=== PATIENT | female | born 1990 | race African-American/Black ===

== ENCOUNTER 2016-03-26 13:55 | Emergency (ER) | payer OTHER ==
[~2016-03-26] VITALS: Ht 165.1 cm; Wt 127.0 kg
[~2016-03-26 13:55] MED LIST: AMOX500C PO; CEFD300C PO; HYDR-971 PO; SULF1TAB24 PO
[2016-03-26 14:42] VITALS: BP 154/72
[2016-03-26 15:07] LABS: BILIRUBIN,URINE NEGATIVE (NEG); GLUCOSE,URINE NEGATIVE (NEG); NITRITE,URINE NEGATIVE (NEG); PROTEIN,URINE NEGATIVE (NEG-TRACE); UROBILINOGEN,URINE 0.2 mg/dL (0.2 mg/dL)
[2016-03-26 15:15] LABS: OBC FLU VALID
--- NOTE | 2016-03-26 15:16 | PHYS DOC ---
Past Medical History Past Medical History: No Pertinent History, Depression, Other Additional Past Medical Histor: tubal Past Surgical History: Other Additional Past Surgical Histo: tumor removal as a child, TUBAL Alcohol Use: Occasionally Drug Use: None Adult General Chief Complaint Chief Complaint: LOWER BACK PAIN OR INJURY [facility] HPI Patient is a 25 year old female presents emergency department stating that she is having lower back pain that is into her pelvic area times 1 days. She also states that she has been nauseated and vomited. She has generalized body aches and discomfort. She denies any urinary frequency but does state that she noted a little bit of blood in her urine earlier today. Patient denies any fever, chills. She denies taking any medications to help with any of the symptoms. Review of Systems Review of Systems Constitutional: chills Eyes: Denies change in visual acuity, redness, or eye pain [] HENT: Denies nasal congestion or sore throat [] Respiratory: Denies cough or shortness of breath [] Cardiovascular: No additional information not addressed in HPI [] GI: Denies abdominal pain, nausea, vomiting, bloody stools or diarrhea [] : Denies dysuria or hematuria [] Musculoskeletal: Denies back pain or joint pain [] Integument: Denies rash or skin lesions [] Neurologic: Denies headache, focal weakness or sensory changes [] Allergies Allergies Allergies Coded Allergies Type Severity Reaction Last Updated Verified No Known Drug Allergies 06/22/13 No Physical Exam Physical Exam Constitutional: Well developed, well nourished, no acute distress, non-toxic appearance. [] HENT: Normocephalic, atraumatic, bilateral external ears normal, oropharynx moist, no oral exudates, nose normal. [] Eyes: PERRLA, EOMI, conjunctiva normal, no discharge. [] Neck: Normal range of motion, no tenderness, supple, no stridor. [] Cardiovascular:Heart rate regular rhythm, no murmur [] Lungs & Thorax: Bilateral breath sounds clear to auscultation [] Abdomen: Bowel sounds hypoactive, soft, no tenderness, no masses, no pulsatile masses. [] Skin: Warm, dry, no erythema, no rash. [] Back: No tenderness, left CVA tenderness. [] Extremities: No tenderness, no cyanosis, no clubbing, ROM intact, no edema. [] Neurologic: Alert and oriented X 3, normal motor function, normal sensory function, no focal deficits noted. [] Psychologic: Affect normal, judgement normal, mood normal. [] Current Patient Data Vital Signs Vital Signs Date Time Temp Pulse Resp B/P Pulse Ox O2 Delivery O2 Flow Rate FiO2 03/26/16 14:42 102.8 127 20 99 Room Air 102.8 Lab Values Laboratory Tests Test 03/26/16 14:45 Influenza Type A Antigen Positive (NEGATIVE) Influenza Type B Antigen Negative (NEGATIVE) EKG EKG [] Radiology/Procedures Radiology/Procedures [] Course & Med Decision Making Course & Med Decision Making Pertinent Labs and Imaging studies reviewed. (See chart for details) Patient's urine dip was positive for small amount leukocyte esterase as well as moderate amount of blood. test was negative. Patient will be placed on Macrobid one tablet twice day for the next 7 days. Recommended plenty of fluids such as water and cranberry juice. Patient's influenza A was positive. She'll be provided with Tamiflu as well. She was encouraged to drink plenty of fluids Tylenol and ibuprofen for fever chills or generalized body aches and discomfort. Patient was provided with discharge instructions treatment regimens and follow-up recommendations. Signs and symptoms to return back to emergency department as been provided. [] Dragon Disclaimer Dragon Disclaimer This electronic medical record was generated, in whole or in part, using a voice recognition dictation system. Departure Departure Impression: Primary Impression: Influenza A Additional Impression: UTI (urinary tract infection) Disposition: 01 HOME, SELF-CARE Condition: STABLE Referrals: NO PCP (PCP) Patient Instructions: Influenza, Adult, [id number], Urinary Tract Infection, [id number] Additional Instructions: Activity as tolerated. Medications as prescribed. Tylenol for fever chills generalized body aches and discomfort. Drink plenty of fluids. Drink plenty of water and cranberry juice. Avoid cranberry juice cocktail, carbonated beverages, citrus fruits and alcohol sees her considered irritants to the bladder. Follow-up to primary care physician next 5-7 days. Return back to emergency department sign symptoms of become worse. Scripts Oseltamivir Phosphate (Tamiflu)75 Mg Capsule1 Cap PO BID #10 CAP Prov:PRESTON ACOSTA MANAGER [employer]ENC[employer] 03/26/16 Nitrofurantoin Monohyd/M-Cryst (Macrobid 100 Mg Capsule)100 Mg Capsule1 Cap PO BID #14 CAP Prov:PRESTON ACOSTA NP 03/26/16 Problem Qualifiers PRESTON ACOSTA NP Mar 26, 2016 15:16
[2016-03-26] MEDS ORDERED: OSEL75CA PO (15:22)
[2016-03-26] MEDS ORDERED: NITR100C62 PO (15:22)
[2016-03-26] MEDS ORDERED: IBUPROFEN 800 MG TABLET. PO ONE (15:30)
[2016-03-26 15:37] LABS: BACTERIA,URINE MANY /HPF (0-FEW)
[2016-03-26 15:38] LABS: SQUAMOUS EPITHELIAL CELL,UR MANY /LPF; YEAST,URINE PRESENT /HPF
== END 2016-03-26 15:45 | disposition home or self-care (01) ==
LOC: ER 13:55
DX: J09.X2 Influenza due to identified novel influenza A virus with other respiratory manifestations (principal); N39.0 Urinary tract infection, site not specified; F32.9 Major depressive disorder, single episode, unspecified
CPT/HCPCS: 81001; 87086; 87804; 99284

== ENCOUNTER 2016-06-26 16:57 | Emergency (ER) | payer SELFPAY ==
[~2016-06-26] VITALS: Ht 167.6 cm; Wt 127.0 kg
[~2016-06-26 16:57] MED LIST changes: +NITR100C62 PO; +OSEL75CA PO
[2016-06-26 17:00] VITALS: BP 131/85
[2016-06-26] MEDS ORDERED: AMOX1TAB61 PO (17:31)
--- NOTE | 2016-06-26 17:31 | PHYS DOC ---
Past Medical History Past Medical History: Depression, Other Additional Past Medical Histor: tubal Past Surgical History: Other Additional Past Surgical Histo: tumor removal as a child, TUBAL Additional Information: 1 PPD Alcohol Use: Occasionally Drug Use: None Adult General Chief Complaint Chief Complaint: HEADACHE HPI HPI Patient is a 25 year old female presents emergency department stating that she' s had 2-3 day history of right frontal sinus pressure as well as a sore throat. She denies any cough or congestion denies any fever chills or nausea vomiting. She does state that she has having right chest discomfort she states that it mainly occurs when she goes to sit forward or when she goes to lay back. She has not taking anything for the pain and discomfort. She states that it just started upon arriving here at the emergency department. Review of Systems Review of Systems Constitutional: Denies fever or chills [] Eyes: Denies change in visual acuity, redness, or eye pain [] HENT: Denies nasal congestion C/o sore throat [] Respiratory: Denies cough or shortness of breath [] Cardiovascular: No additional information not addressed in HPI [] GI: Denies abdominal pain, nausea, vomiting, bloody stools or diarrhea [] : Denies dysuria or hematuria [] Musculoskeletal: Denies back pain or joint pain [] Integument: Denies rash or skin lesions [] Neurologic: right frontal headache, denies focal weakness or sensory changes [] Allergies Allergies Allergies Coded Allergies Type Severity Reaction Last Updated Verified No Known Drug Allergies 06/22/13 No Physical Exam Physical Exam Constitutional: Well developed, well nourished, no acute distress, non-toxic appearance. [] HENT: Normocephalic, atraumatic, bilateral external ears normal, oropharynx moist, no oral exudates, nose normal. Bilateral tympanic membranes appear to be normal. Patient with tenderness noted above the right frontal sinus area. Patient with erythematous noted to bilateral tonsils with exudate noted. Patient is able to talk in full sentences, she is able to maintain her own saliva. Eyes: PERRLA, EOMI, conjunctiva normal, no discharge. [] Neck: Normal range of motion, no tenderness, supple, no stridor. [] Cardiovascular:Heart rate regular rhythm, no murmur [] Lungs & Thorax: Bilateral breath sounds clear to auscultation. Patient with pinpoint tenderness noted upon palpation of the right upper chest area. Skin: Warm, dry, no erythema, no rash. [] Back: No tenderness Extremities: No tenderness, no cyanosis, no clubbing, ROM intact, no edema. [] Neurologic: Alert and oriented X 3, normal motor function, normal sensory function, no focal deficits noted. [] Psychologic: Affect normal, judgement normal, mood normal. [] Current Patient Data Vital Signs Vital Signs Date Time Temp Pulse Resp B/P Pulse Ox O2 Delivery O2 Flow Rate FiO2 06/26/16 17:00 98.2 92 16 131/85 100 Room Air 98.2 EKG EKG EKG was completed with a heart rate of 85 sinus rhythm noted no ectopy noted no STEMI noted per Dr. Becerra Radiology/Procedures Radiology/Procedures [] Course & Med Decision Making Course & Med Decision Making Pertinent Labs and Imaging studies reviewed. (See chart for details) Rapid strep was negative. Although the patient's tonsils appear to be very large with exudate and she has a frontal sinus pain and discomfort she'll be placed on Augmentin. Recommended Sudafed to help with nasal drainage and discharge as well as the pressure of the right sinus. Also recommended Mucinex DM. Patient will be discharged home in stable condition signs symptoms to return back to emergency department as been provided. Patient agrees with discharge instructions treatment regimens and follow-up recommendations. [] Dragon Disclaimer Dragon Disclaimer This electronic medical record was generated, in whole or in part, using a voice recognition dictation system. Departure Departure Impression: Primary Impression: Pharyngitis Additional Impression: Sinusitis Disposition: 01 HOME, SELF-CARE Condition: STABLE Referrals: NO PCP (PCP) Patient Instructions: Sinusitis, Hkqy-[id number], Viral and Bacterial Pharyngitis , [id number]-[id number] Additional Instructions: Activity as tolerated. Medication as prescribed. Tylenol or ibuprofen for your chest wall pain and discomfort. Sudafed instructed by senior product designer [id number]. Mucinex DM as directed by senior product designer [id number]. Drink plenty of fluids. Follow-up primary care physician next 5-7 days. Return back to emergency department sign symptoms of become worse. Scripts Amoxicillin/Potassium Clav (Augmentin 875-125 Tablet)1 Each Tablet1 Tab PO BID # 20 TAB Prov:PRESTON ACOSTA APRN 06/26/16 Problem Qualifiers PRESTON ACOSTA APRN Jun 26, 2016 17:31
--- NOTE | 2016-06-27 06:21 | EKG ---
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
[2016-06-27 08:13] LABS: NEGATIVE OBC STREP NEG; POSITIVE OBC STREP POS
== END 2016-06-26 17:37 | disposition home or self-care (01) ==
LOC: ER 16:57
DX: J32.9 Chronic sinusitis, unspecified (principal); J02.9 Acute pharyngitis, unspecified; F32.9 Major depressive disorder, single episode, unspecified; F17.200 Nicotine dependence, unspecified, uncomplicated
CPT/HCPCS: 87070; 87880; 93005; 99285-25

== ENCOUNTER 2016-10-27 18:05 | Emergency (ER) | payer OTHER ==
[~2016-10-27] VITALS: Ht 165.1 cm; Wt 124.7 kg
[~2016-10-27 18:05] MED LIST changes: +AMOX1TAB61 PO
[2016-10-27] MEDS ORDERED: IBUPROFEN 800 MG TABLET. PO ONE (18:45)
--- NOTE | 2016-10-27 18:53 | EKG ---
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
--- NOTE | 2016-10-27 19:02 | PHYS DOC ---
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 She denies any radiation of the pain. She does state that she has become increasingly short of air when trying to walk up stairs. She states that this is something new. She does state that she has the implant for control and her left upper arm. Patient also states that she's been having a sore throat. Denies any fever, chills or any nausea or vomiting. She also is complaining of lower back pain and discomfort that radiates down into her right lower leg. She denies any trauma or injury to her back area. She denies any urinary frequency urgency or pain with urination. Review of Systems Review of Systems Constitutional: Denies fever or chills [] Eyes: Denies change in visual acuity, redness, or eye pain [] HENT: Denies nasal congestion c/o sore throat [] Respiratory: Denies cough c/o shortness of breath [] Cardiovascular: No additional information not addressed in HPI [] GI: Denies abdominal pain, nausea, vomiting, bloody stools or diarrhea [] : Denies dysuria or hematuria [] Musculoskeletal: Denies back pain or joint pain [] Integument: Denies rash or skin lesions [] Neurologic: Denies headache, focal weakness or sensory changes [] Endocrine: Denies polyuria or polydipsia [] Current Medications Current Medications Current Medications Medications (Trade) Dose Ordered Sig/[facility] Start Time Stop Time Status Last Admin Dose Admin Ibuprofen (Motrin) 800 mg 1X ONCE 10/27/16 18:45 10/27/16 18:47 DC 10/27/16 19:38 800 MG Allergies Allergies Allergies Coded Allergies Type Severity Reaction Last Updated Verified No Known Drug Allergies 06/22/13 No Physical Exam Physical Exam Constitutional: Well developed, well nourished, no acute distress, non-toxic appearance. [] HENT: Normocephalic, atraumatic, bilateral external ears normal, oropharynx moist, no oral exudates, nose normal. Bilateral tympanic membranes appear to be normal. Throat with redness, no erythematous no exudate noted. Right tonsil appears to almost touch the uvula. Left tonsil appears to be enlarged as well. No uvula deviation noted. No anterior cervical adenopathy noted. Eyes: PERRLA, EOMI, conjunctiva normal, no discharge. [] Neck: Normal range of motion, no tenderness, supple, no stridor. [] Cardiovascular:Heart rate regular rhythm, no murmur [] Lungs & Thorax: Bilateral breath sounds clear to auscultation []] Skin: Warm, dry, no erythema, no rash. [] Back: Left lower back tenderness, no CVA tenderness. [] Extremities: No tenderness, no cyanosis, no clubbing, ROM intact, no edema. Peripheral pulses are 2+ cap refill brisk less than 2 seconds. Patient with good sensation noted to lower extremities. Neurologic: Alert and oriented X 3, normal motor function, normal sensory function, no focal deficits noted. [] Psychologic: Affect normal, judgement normal, mood normal. [] Current Patient Data Vital Signs Vital Signs Date Time Temp Pulse Resp B/P (MAP) Pulse Ox O2 Delivery O2 Flow Rate FiO2 10/27/16 18:20 98.6 97 18 114/74 (87) 96 Room Air 98.6 Lab Values Laboratory Tests Test 10/27/16 18:45 10/27/16 19:25 10/27/16 20:10 D-Dimer ([place]) 0.38 ug/mlFEU (0.00-0.50) White Blood Count 8.5 x10^3/uL (4.0-11.0) Red Blood Count 5.20 x10^6/uL (3.50-5.40) Hemoglobin 13.0 g/dL (12.0-15.5) Hematocrit 39.7 % (36.0-47.0) Mean Corpuscular Volume 76 fL (79-100) L Mean Corpuscular Hemoglobin 25 pg (25-35) Mean Corpuscular Hemoglobin Concent 33 g/dL (31-37) Red Cell Distribution Width 15.8 % (11.5-14.5) H Platelet Count 165 x10^3/uL (140-400) Neutrophils (%) (Auto) 66 % (31-73) Lymphocytes (%) (Auto) 25 % (24-48) Monocytes (%) (Auto) 5 % (0-9) Eosinophils (%) (Auto) 3 % (0-3) Basophils (%) (Auto) 1 % (0-3) Neutrophils # (Auto) 5.6 x10^3uL (1.8-7.7) Lymphocytes # (Auto) 2.1 x10^3/uL (1.0-4.8) Monocytes # (Auto) 0.5 x10^3/uL (0.0-1.1) Eosinophils # (Auto) 0.3 x10^3/uL (0.0-0.7) Basophils # (Auto) 0.0 x10^3/uL (0.0-0.2) Sodium Level 139 mmol/L (136-145) Potassium Level 3.5 mmol/L (3.5-5.1) Chloride Level 103 mmol/L (98-107) Carbon Dioxide Level 28 mmol/L (21-32) Anion Gap 8 (6-14) Blood Urea Nitrogen 8 mg/dL (7-20) Creatinine 0.7 mg/dL (0.6-1.0) Estimated GFR (Cockcroft-Gault) 121.5 BUN/Creatinine Ratio 11 (6-20) Glucose Level 127 mg/dL (70-99) H Calcium Level 8.5 mg/dL (8.5-10.1) Total Bilirubin 0.2 mg/dL (0.2-1.0) Aspartate Amino Transferase (AST) 11 U/L (15-37) L Alanine Aminotransferase (ALT) 18 U/L (14-59) Alkaline Phosphatase 72 U/L (46-116) Total Protein 8.3 g/dL (6.4-8.2) H Albumin 3.7 g/dL (3.4-5.0) Albumin/Globulin Ratio 0.8 (1.0-1.7) L Urine Color Yellow Urine Clarity Clear Urine pH 5.5 Urine Specific [place] 1.025 Urine Protein Negative mg/dL (NEG-TRACE) Urine Glucose (UA) Negative mg/dL (NEG) Urine Ketones (Stick) Negative mg/dL (NEG) Urine Blood Moderate (NEG) Urine Nitrite Negative (NEG) Urine Bilirubin Negative (NEG) Urine Urobilinogen Dipstick 1.0 mg/dL (0.2 mg/dL) Urine Leukocyte Esterase Small (NEG) Urine RBC 3-5 /HPF (0-2) Urine WBC 1-4 /HPF (0-4) Urine Squamous Epithelial Cells Occ /LPF Urine Bacteria Moderate /HPF (0-FEW) Urine Mucus Mod /LPF Laboratory Tests 10/27/16 19:25 Laboratory Tests 10/27/16 19:25 EKG EKG Patient with an EKG completed at 1813 with a heart rate of 93 sinus rhythm noted no ectopy no STEMI per Dr. Pack[] Radiology/Procedures Radiology/Procedures [] Course & Med Decision Making Course & Med Decision Making Pertinent Labs and Imaging studies reviewed. (See chart for details) Chest x-ray was negative per Dr. Burden. Rapid strep was negative. CBC chemistries and a d-dimer were within normal limits. Urine was positive for urinary tract infection. Patient will be discharged home with Keflex, and Flexeril. Patient will be provided Keflex for urinary tract infection as well as for throat issues. However she has has pharyngitis. Patient will be provided with Flexeril for lower back pain and discomfort. Patient was instructed Flexeril will cause drowsiness do not take any be alert and oriented. That radiates down into her right leg. Patient has been provided with all of her lab results. She'll be discharged home in stable condition with recommendations for plenty of fluids such as water and cranberry juice. Recommended to avoid coverages cocktail, carbonate beverages, citrus fruits, alcohol, and caffeine as these are all considered irritants to the bladder. Signs and symptoms to return back to emergency department been provided. [] Dragon Disclaimer Dragon Disclaimer This electronic medical record was generated, in whole or in part, using a voice recognition dictation system. Departure Departure Impression: Primary Impression: UTI (urinary tract infection) Additional Impressions: Pharyngitis Back pain Disposition: 01 HOME, SELF-CARE Condition: STABLE Referrals: NO PCP (PCP) Patient Instructions: Back Pain, Adult, [id number], Urinary Tract Infection, Pzik-gs-Vugb, Viral and Bacterial Pharyngitis, [id number] Additional Instructions: Your x-ray of your chest was negative, you're rapid strep was negative, you're blood work was normal. You do have a urinary tract infection. Drink plenty of fluids such as water and cranberry juice. Avoid cranberry juice cocktail, carbonate beverages, caffeine, alcohol, citrus fruits disease are considered irritants to the bladder. Medications as prescribed. Ibuprofen 800 mg every 8 hours with food stop taking few develop an upset stomach. Flexeril will help with your back pain and discomfort however this medication will cause drowsiness do not take any be alert and oriented. Follow-up with your primary care physician in next 7-10 days. Return back to emergency prior signs symptoms of become worse. Scripts Cyclobenzaprine Hcl (CYCLOBENZAPRINE HCL) 10 Mg Tablet 1 TAB PO TID Y for MUSCLE SPASMS, #30 TAB Prov: PRESTON ACOSTA APRN 10/27/16 Cephalexin (CEPHALEXIN) 500 Mg Tablet 1 TAB PO BID, #20 TAB Prov: PRESTON ACOSTA APRN 10/27/16 Problem Qualifiers Additional Impressions: Back pain Back pain location: low back pain Chronicity: acute Back pain laterality: unspecified Sciatica presence: without sciatica Qualified Codes: M54.5 - Low back pain PRESTON ACOSTA APRN Oct 27, 2016 19:02
[2016-10-27 19:31] LABS: BASO % 1 % (0-3); EOS % 3 % (0-3); HEMATOCRIT 39.7 % (36.0-47.0); LYMPH # 2.1 x10^3/uL (1.0-4.8); LYMPH % 25 % (24-48); MEAN CORPUSCULAR HEMOGLOBIN 25 pg (25-35); MEAN CORPUSCULAR HGB CONC 33 g/dL (31-37); MEAN CORPUSCULAR VOLUME 76 fL (79-100); MONO % 5 % (0-9); NEUT % 66 % (31-73); PLATELET COUNT 165 x10^3/uL (140-400); RED CELL DISTRIBUTION WIDTH 15.8 % (11.5-14.5); WHITE BLOOD COUNT 8.5 x10^3/uL (4.0-11.0)
[2016-10-27 19:52] LABS: CALCIUM 8.5 mg/dL (8.5-10.1); CREATININE 0.7 mg/dL (0.6-1.0); GFR 121.5; POTASSIUM 3.5 mmol/L (3.5-5.1)
[2016-10-27 19:56] LABS: ALBUMIN 3.7 g/dL (3.4-5.0); ALBUMIN/GLOBULIN RATIO 0.8 (1.0-1.7); TOTAL BILIRUBIN 0.2 mg/dL (0.2-1.0); TOTAL PROTEIN 8.3 g/dL (6.4-8.2)
[2016-10-27 20:20] LABS: BILIRUBIN,URINE NEGATIVE (NEG); GLUCOSE,URINE NEGATIVE (NEG); NITRITE,URINE NEGATIVE (NEG); PH,URINE 5.5; PROTEIN,URINE NEGATIVE (NEG-TRACE)
[2016-10-27 20:34] LABS: BACTERIA,URINE MODERATE /HPF (0-FEW); SQUAMOUS EPITHELIAL CELL,UR OCC /LPF
[2016-10-27] MEDS ORDERED: CEPH500T PO (20:45)
[2016-10-27] MEDS ORDERED: CYCL10TA2 PO (20:45)
[2016-10-27 20:56] VITALS: BP 130/65
--- NOTE | 2016-10-28 08:17 | RAD ---
Exam performed: 2 views of the chest. Indication: left upper chest pain Date of Service:10/27/2016 8:45 PM . Comparison : None available. Findings: PA and lateral radiographs of the chest reveal a normal cardiomediastinal contour. The lungs are clear. No pleural fluid is seen. The visualized osseous structures are unremarkable. Impression: Radiographically normal chest.
[2016-10-28 10:15] LABS: NEGATIVE OBC STREP NEG; POSITIVE OBC STREP POS
== END 2016-10-27 20:35 | disposition home or self-care (01) ==
LOC: ER 18:05
DX: N39.0 Urinary tract infection, site not specified (principal); J02.9 Acute pharyngitis, unspecified; R07.89 Other chest pain
CPT/HCPCS: 36415; 71020; 80053; 81001; 85025; 85379; 87070; 87086; 87880; 93005; 99285-25

== ENCOUNTER 2017-01-13 17:42 | Emergency (ER) | payer OTHER ==
[~2017-01-13] VITALS: Ht 165.1 cm; Wt 133.8 kg
[~2017-01-13 17:42] MED LIST changes: +CEPH500T PO; +CYCL10TA2 PO
[2017-01-13] MEDS ORDERED: IV NORMAL SALINE 1000ML BAG 1,000 ML IV ONE (19:00)
[2017-01-13] MEDS ORDERED: ONDANSETRON PF 4 MG/2 ML VIAL. IV ONE (19:00)
--- NOTE | 2017-01-13 19:07 | PHYS DOC ---
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 Patient states that for the past 4 days she's had increasing abdominal pain with spotting. Patient states she has implant in her left upper arm since 2013 therefore has irregular menses. Patient states she has some burning with urination. Patient denies any fevers. Patient denies any nausea/vomiting/ diarrhea. Patient no other complaints. Review of Systems Review of Systems GEN: Denies fevers, chills, sweats HEENT: Denies blurred vision, sore throat CV: Denies chest pain RESP: Denies shortness of air, cough GI: Abdominal pain : Vaginal spotting NEURO: Denies confusion, dizziness MSK: Denies weakness, joint pain/swelling All other systems were reviewed and found to be within normal limits, except as documented in this note. Current Medications Current Medications Current Medications Medications (Trade) Dose Ordered Sig/Kelly Start Time Stop Time Status Last Admin Dose Admin Info (Do NOT chart on this entry -- for MONITORING) 1 each PRN DAILY PRN 01/13/17 19:45 01/15/17 19:44 Iohexol (Omnipaque 300 Mg/ml) 75 ml 1X ONCE 01/13/17 19:30 01/13/17 19:31 DC 01/13/17 19:30 75 ML Ketorolac Tromethamine (Toradol) 30 mg 1X ONCE 01/13/17 20:15 01/13/17 20:16 DC 01/13/17 20:08 30 MG Ondansetron HCl (Zofran) 4 mg 1X ONCE 01/13/17 19:00 01/13/17 19:01 DC 01/13/17 19:17 4 MG Sodium Chloride 1,000 ml @ 1,000 mls/hr 1X ONCE 01/13/17 19:00 01/13/17 19:59 DC 01/13/17 19:17 1,000 MLS/HR Allergies Allergies Allergies Coded Allergies Type Severity Reaction Last Updated Verified No Known Drug Allergies 06/22/13 No Physical Exam Physical Exam GEN.: No apparent distress. Alert and oriented. HEENT: Head is normocephalic, atraumatic NECK: Supple. LUNGS: CTAB. HEART: RRR, S1, S2 present. Peripheral pulses intact ABDOMEN: Soft, nontender, no reproducible abdominal pain in the emergency room. Positive bowel sounds. EXTREMITIES: Without any cyanosis. NEUROLOGIC: Normal speech, normal tone PSYCHIATRIC: Normal affect, normal mood. SKIN: No ulcerations Current Patient Data Vital Signs Vital Signs Date Time Temp Pulse Resp B/P (MAP) Pulse Ox O2 Delivery O2 Flow Rate FiO2 01/13/17 18:23 98.3 82 20 142/67 (92) 100 Room Air 98.3 Lab Values Laboratory Tests Test 01/13/17 18:15 01/13/17 18:18 01/13/17 19:15 Urine Collection Type Unknown Urine Color Yellow Urine Clarity Clear Urine pH 6.0 Urine Specific [place] >=1.030 Urine Protein 30 mg/dL (NEG-TRACE) Urine Glucose (UA) Negative mg/dL (NEG) Urine Ketones (Stick) Negative mg/dL (NEG) Urine Blood Large (NEG) Urine Nitrite Negative (NEG) Urine Bilirubin Negative (NEG) Urine Urobilinogen Dipstick 0.2 mg/dL (0.2 mg/dL) Urine Leukocyte Esterase Small (NEG) Urine RBC 11-20 /HPF (0-2) Urine WBC 5-10 /HPF (0-4) Urine Squamous Epithelial Cells Occ /LPF Urine Bacteria Many /HPF (0-FEW) Urine Mucus Marked /LPF POC Urine HCG, Qualitative Hcg negative (Negative) White Blood Count 7.0 x10^3/uL (4.0-11.0) Red Blood Count 5.29 x10^6/uL (3.50-5.40) Hemoglobin 13.2 g/dL (12.0-15.5) Hematocrit 40.8 % (36.0-47.0) Mean Corpuscular Volume 77 fL (79-100) L Mean Corpuscular Hemoglobin 25 pg (25-35) Mean Corpuscular Hemoglobin Concent 32 g/dL (31-37) Red Cell Distribution Width 15.9 % (11.5-14.5) H Platelet Count 179 x10^3/uL (140-400) Neutrophils (%) (Auto) 50 % (31-73) Lymphocytes (%) (Auto) 40 % (24-48) Monocytes (%) (Auto) 5 % (0-9) Eosinophils (%) (Auto) 4 % (0-3) H Basophils (%) (Auto) 1 % (0-3) Neutrophils # (Auto) 3.5 x10^3uL (1.8-7.7) Lymphocytes # (Auto) 2.8 x10^3/uL (1.0-4.8) Monocytes # (Auto) 0.3 x10^3/uL (0.0-1.1) Eosinophils # (Auto) 0.3 x10^3/uL (0.0-0.7) Basophils # (Auto) 0.0 x10^3/uL (0.0-0.2) Sodium Level 140 mmol/L (136-145) Potassium Level 3.6 mmol/L (3.5-5.1) Chloride Level 104 mmol/L (98-107) Carbon Dioxide Level 28 mmol/L (21-32) Anion Gap 8 (6-14) Blood Urea Nitrogen 11 mg/dL (7-20) Creatinine 0.6 mg/dL (0.6-1.0) Estimated GFR (Cockcroft-Gault) 145.1 BUN/Creatinine Ratio 18 (6-20) Glucose Level 86 mg/dL (70-99) Calcium Level 9.0 mg/dL (8.5-10.1) Total Bilirubin 0.2 mg/dL (0.2-1.0) Aspartate Amino Transferase (AST) 17 U/L (15-37) Alanine Aminotransferase (ALT) 21 U/L (14-59) Alkaline Phosphatase 69 U/L (46-116) Total Protein 8.6 g/dL (6.4-8.2) H Albumin 3.6 g/dL (3.4-5.0) Albumin/Globulin Ratio 0.7 (1.0-1.7) L Lipase 93 U/L (73-393) Laboratory Tests 01/13/17 19:15 Laboratory Tests 01/13/17 19:15 EKG EKG [] Radiology/Procedures Radiology/Procedures CT scan of the abdomen pelvis NAD[] Course & Med Decision Making Course & Med Decision Making Pertinent Labs and Imaging studies reviewed. (See chart for details) ED course: Patient was seen and examined emergency room abdominal workup was ordered along with a CT scan abdomen pelvis 2106: On reexamination the patient's full much better updated patient on lab work and CT findings. Recommended patient follow-up with [facility] for dysfunctional uterine bleeding. MDM: After reviewing the chart, CC/HPI/PMH, physical exam, [lab results], [ radiological results], I do not believe the patient has a intra-abdominal emergency warranting further workup and/or admission at this time. I believe patient is stable for discharge. Patient does not need a blood transfusion. Recommended short-term follow-up [facility] for further evaluation and management of the vaginal bleeding. Additional verbal discharge instructions were provided to the patient and that if symptoms get worse or any new symptoms arise that are worrisome to the patient she is to return to the emergency room immediately [] Dragon Disclaimer Dragon Disclaimer This electronic medical record was generated, in whole or in part, using a voice recognition dictation system. Departure Departure Impression: Primary Impression: Dysfunctional uterine bleeding Additional Impression: Abdominal pain Disposition: 01 HOME, SELF-CARE Condition: IMPROVED Referrals: NO PCP (PCP) Patient Instructions: Uterine Bleeding, Dysfunctional, [id number] Additional Instructions: Please follow up with your [facility] the next one to 2 days and return symptoms increase. Problem Qualifiers SAM CARDENAS DO Jan 13, 2017 19:07
[2017-01-13 19:29] LABS: BILIRUBIN,URINE NEGATIVE (NEG); GLUCOSE,URINE NEGATIVE (NEG); NITRITE,URINE NEGATIVE (NEG); PROTEIN,URINE 30 mg/dL (NEG-TRACE); UROBILINOGEN,URINE 0.2 mg/dL (0.2 mg/dL)
[2017-01-13 19:30] LABS: BASO % 1 % (0-3); EOS % 4 % (0-3); HEMATOCRIT 40.8 % (36.0-47.0); HEMOGLOBIN 13.2 g/dL (12.0-15.5); LYMPH # 2.8 x10^3/uL (1.0-4.8); LYMPH % 40 % (24-48); MEAN CORPUSCULAR HEMOGLOBIN 25 pg (25-35); MEAN CORPUSCULAR HGB CONC 32 g/dL (31-37); MEAN CORPUSCULAR VOLUME 77 fL (79-100); MONO % 5 % (0-9); NEUT % 50 % (31-73); PLATELET COUNT 179 x10^3/uL (140-400); RED BLOOD COUNT 5.29 x10^6/uL (3.50-5.40); RED CELL DISTRIBUTION WIDTH 15.9 % (11.5-14.5)
[2017-01-13] MEDS ORDERED: IOHEXOL 300 MG/ML 100ML VIAL. IV ONE (19:30)
[2017-01-13] MEDS ORDERED: CONTRAST GIVEN MC PRN (19:45)
[2017-01-13 19:49] LABS: CREATININE 0.6 mg/dL (0.6-1.0); GFR 145.1; POTASSIUM 3.6 mmol/L (3.5-5.1)
[2017-01-13 19:55] LABS: ALBUMIN 3.6 g/dL (3.4-5.0); ALBUMIN/GLOBULIN RATIO 0.7 (1.0-1.7); TOTAL BILIRUBIN 0.2 mg/dL (0.2-1.0); TOTAL PROTEIN 8.6 g/dL (6.4-8.2)
[2017-01-13 19:59] LABS: BACTERIA,URINE MANY /HPF (0-FEW); SQUAMOUS EPITHELIAL CELL,UR OCC /LPF
[2017-01-13] MEDS ORDERED: KETOROLAC 30 MG/ML INJ. IV ONE (20:15)
--- NOTE | 2017-01-13 20:57 | RAD ---
CT ABD PELV W/ IV CONTRST ONLY dated 01/13/2017 8:35 PM Indication: Abdominal pain, bleedingabd pain and vag bleeding x 3 days, no priors, [id number] 75ml. Comparison: No comparison is available. Technique: Contiguous axial imaging of the abdomen and pelvis performed after the intravenous administration of 75 cc Omnipaque 300. One or more of the following individualized dose reduction techniques were utilized for this examination: 1. Automated exposure control 2. Adjustment of the mA and/or kV according to patient size 3. Use of iterative reconstruction technique Findings: Limited images of lung bases are clear. Minimal linear scar or atelectasis in the lower lobes. Heart size within normal limits. No pleural or pericardial effusion. Liver, spleen, pancreas, adrenal glands, gallbladder and kidneys are unremarkable. No hydronephrosis. Unopacified GI tract is normal in caliber and contour. No focal bowel wall thickening. No inflammatory stranding in the mesentery. No ascites or lymphadenopathy. The appendix is normal in caliber. Images of the pelvis show nondistended urinary bladder. Uterus and adnexa are unremarkable. No free pelvic fluid or pelvic lymphadenopathy. Bone windows show no acute findings. IMPRESSION: No acute abnormality of abdomen or pelvis. Normal appendix. Electronically signed by: Akbar Plaza MD (01/13/2017 8:54 PM) [facility]
[2017-01-13 21:00] VITALS: BP 118/69
== END 2017-01-13 21:35 | disposition home or self-care (01) ==
LOC: ER 17:42
DX: N93.8 Other specified abnormal uterine and vaginal bleeding (principal); R10.9 Unspecified abdominal pain; R30.0 Dysuria; Z98.51 Tubal ligation status
CPT/HCPCS: 36415; 74177; 80053; 81001; 81025; 83690; 85025; 87086; 96361; 96374; 96375; 99285; J1885; J2405; J7030; Q9967

== ENCOUNTER 2017-02-26 23:35 | Emergency (ER) | payer OTHER ==
[2017-02-27] MEDS: IBUPROFEN 800 MG TABLET. PO (03:30)
== END 2017-02-27 03:45 | disposition home or self-care (01) ==
LOC: ER 23:35
DX: R09.1 Pleurisy (principal); F32.9 Major depressive disorder, single episode, unspecified; E66.01 Morbid (severe) obesity due to excess calories; Z68.42 Body mass index [BMI] 45.0-49.9, adult
CPT/HCPCS: 36415; 71020; 84484; 85379; 93005; 99285-25

== ENCOUNTER 2017-04-14 02:04 | Emergency (ER) | payer OTHER ==
[2017-04-14 02:40] LABS: URINE HCG POC HCG NEGATIVE (Negative)
[2017-04-14] MEDS: KETOROLAC 60 MG/2 ML INJ. IM ×2 (03:14)
== END 2017-04-14 03:25 | disposition home or self-care (01) ==
LOC: ER 02:04
DX: M54.12 Radiculopathy, cervical region (principal)
CPT/HCPCS: 81025; 96372; 99283-25; J1885

== ENCOUNTER 2017-04-26 16:42 | Emergency (ER) | payer OTHER | END 2017-04-26 17:05 | disposition home or self-care (01) | LOC: ER 16:42 | DX: M54.12 Radiculopathy, cervical region (principal) | CPT/HCPCS: 99283 ==

== ENCOUNTER 2017-07-23 06:55 | Emergency (ER) | payer OTHER ==
[2017-07-23 07:45] LABS: ADD MAN DIFF? NO
[2017-07-23 07:56] LABS: ANION GAP 10 (6-14); BLOOD UREA NITROGEN 12 mg/dL (7-20); CALCIUM 8.9 mg/dL (8.5-10.1); CARBON DIOXIDE 24 mmol/L (21-32); CHLORIDE 103 mmol/L (98-107); CREATININE 0.7 mg/dL (0.6-1.0); GFR 120.6; GLUCOSE 97 mg/dL (70-99); POTASSIUM 3.6 mmol/L (3.5-5.1); SODIUM 137 mmol/L (136-145)
[2017-07-23 07:59] LABS: BASO % 0 % (0-3); EOS # 0.4 x10^3/uL (0.0-0.7); EOS % 4 % (0-3); HEMATOCRIT 42.1 % (36.0-47.0); LYMPH # 2.7 x10^3/uL (1.0-4.8); LYMPH % 26 % (24-48); MEAN CORPUSCULAR HEMOGLOBIN 26 pg (25-35); MEAN CORPUSCULAR HGB CONC 33 g/dL (31-37); MEAN CORPUSCULAR VOLUME 77 fL (79-100); MONO # 0.4 x10^3/uL (0.0-1.1); MONO % 4 % (0-9); NEUT # 6.7 x10^3uL (1.8-7.7); NEUT % 65 % (31-73); PLATELET COUNT 169 x10^3/uL (140-400); RED BLOOD COUNT 5.47 x10^6/uL (3.50-5.40); RED CELL DISTRIBUTION WIDTH 16.6 % (11.5-14.5); WHITE BLOOD COUNT 10.3 x10^3/uL (4.0-11.0)
[2017-07-23 08:13] LABS: D-DIMER 0.32 ug/mlFEU (0.00-0.50); TROPONINI < 0.017 ng/mL (0.000-0.055)
[2017-07-23 08:14] LABS: NT-PRO BNP < 5 pg/mL (0-124)
[2017-07-23 08:17] LABS: URINE HCG POC HCG NEGATIVE (Negative)
[2017-07-23] MEDS: HYDROcodone/APAP 5/325MG 1 TAB TABLET PO (09:16)
[2017-07-23] MEDS: KETOROLAC 30 MG/ML INJ. IV (09:18)
== END 2017-07-23 09:45 | disposition home or self-care (01) ==
LOC: ER 06:55
DX: R07.89 Other chest pain (principal)
CPT/HCPCS: 36415; 71045; 80048; 81025; 83880; 84484; 85025; 85379; 93005; 96374; 99285-25; J1885

== ENCOUNTER 2017-11-24 22:33 | Emergency (ER) | payer OTHER ==
[~2017-11-24] VITALS: Ht 165.1 cm; Wt 117.9 kg
[~2017-11-24 22:33] MED LIST changes: +IBUP-1060 PO; +PRED20TA PO; +TRAM50TA PO
[2017-11-24 23:06] LABS: BASO % 1 % (0-3); EOS # 0.4 x10^3/uL (0.0-0.7); EOS % 5 % (0-3); HEMATOCRIT 39.7 % (36.0-47.0); HEMOGLOBIN 13.3 g/dL (12.0-15.5); LYMPH # 3.2 x10^3/uL (1.0-4.8); LYMPH % 45 % (24-48); MEAN CORPUSCULAR HEMOGLOBIN 26 pg (25-35); MEAN CORPUSCULAR HGB CONC 34 g/dL (31-37); MEAN CORPUSCULAR VOLUME 77 fL (79-100); MONO # 0.5 x10^3/uL (0.0-1.1); MONO % 6 % (0-9); NEUT % 43 % (31-73); PLATELET COUNT 160 x10^3/uL (140-400); RED BLOOD COUNT 5.19 x10^6/uL (3.50-5.40); RED CELL DISTRIBUTION WIDTH 15.8 % (11.5-14.5); WHITE BLOOD COUNT 7.1 x10^3/uL (4.0-11.0)
--- NOTE | 2017-11-24 23:10 | PHYS DOC ---
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 Patient reports it is pressure like denying any radiation of pain. Patient denies increased pain with deep breath or difficulty breathing. Patient denies cough, fever or chills, pain, or palpitations. Patient reports she took Tylenol at 8:30 AM with no relief in symptoms denying any other medications. Patient reports she has no monthly menstrual cycle due to [employer]. Patient reports she smokes less than half pack per day. Patient reports she did drive to [place] [employer] 2 weeks ago. Patient reports her father at the age of 4444 years old last year from a heart attack. Review of Systems Review of Systems Constitutional: Denies fever or chills [] Eyes: Denies change in visual acuity, redness, or eye pain [] HENT: Denies nasal congestion or sore throat [] Respiratory: Denies cough or shortness of breath [] Cardiovascular: No additional information not addressed in HPI [] GI: Denies abdominal pain, nausea, vomiting, bloody stools or diarrhea [] : Denies dysuria or hematuria [] Musculoskeletal: Denies back pain or joint pain [] Integument: Denies rash or skin lesions [] Neurologic: Denies headache, focal weakness or sensory changes [] Endocrine: Denies polyuria or polydipsia [] All other systems were reviewed and found to be within normal limits, except as documented in this note. Current Medications Current Medications Current Medications Medications (Trade) Dose Ordered Sig/Kelly Start Time Stop Time Status Last Admin Dose Admin Ketorolac Tromethamine (Toradol 15mg Vial) 15 mg 1X ONCE 11/24/17 23:15 11/24/17 23:16 DC 11/24/17 23:17 15 MG Allergies Allergies Allergies Coded Allergies Type Severity Reaction Last Updated Verified No Known Drug Allergies 06/22/13 No Physical Exam Physical Exam Constitutional: Well developed, well nourished, no acute distress, non-toxic appearance. [] HENT: Normocephalic, atraumatic, bilateral external ears normal, oropharynx moist, no oral exudates, nose normal. [] Eyes: PERRLA, EOMI, conjunctiva normal, no discharge. [] Neck: Normal range of motion, no tenderness, supple, no stridor. [] Cardiovascular:Heart rate regular rhythm, no murmur [] Lungs & Thorax: Bilateral breath sounds clear to auscultation [] Abdomen: Bowel sounds normal, soft, no tenderness, no masses, no pulsatile masses. [] Skin: Warm, dry, no erythema, no rash. [] Back: No tenderness, no CVA tenderness. [] Extremities: No tenderness, no cyanosis, no clubbing, ROM intact, no edema. [] Neurologic: Alert and oriented X 3, normal motor function, normal sensory function, no focal deficits noted. [] Psychologic: Affect normal, judgement normal, mood normal. [] Current Patient Data Vital Signs Vital Signs Date Time Temp Pulse Resp B/P (MAP) Pulse Ox O2 Delivery O2 Flow Rate FiO2 11/24/17 22:39 98.5 89 20 157/90 (112) 99 Room Air 98.5 Lab Values Laboratory Tests Test 11/24/17 22:50 11/24/17 23:13 White Blood Count 7.1 x10^3/uL (4.0-11.0) Red Blood Count 5.19 x10^6/uL (3.50-5.40) Hemoglobin 13.3 g/dL (12.0-15.5) Hematocrit 39.7 % (36.0-47.0) Mean Corpuscular Volume 77 fL (79-100) L Mean Corpuscular Hemoglobin 26 pg (25-35) Mean Corpuscular Hemoglobin Concent 34 g/dL (31-37) Red Cell Distribution Width 15.8 % (11.5-14.5) H Platelet Count 160 x10^3/uL (140-400) Neutrophils (%) (Auto) 43 % (31-73) Lymphocytes (%) (Auto) 45 % (24-48) Monocytes (%) (Auto) 6 % (0-9) Eosinophils (%) (Auto) 5 % (0-3) H Basophils (%) (Auto) 1 % (0-3) Neutrophils # (Auto) 3.0 x10^3uL (1.8-7.7) Lymphocytes # (Auto) 3.2 x10^3/uL (1.0-4.8) Monocytes # (Auto) 0.5 x10^3/uL (0.0-1.1) Eosinophils # (Auto) 0.4 x10^3/uL (0.0-0.7) Basophils # (Auto) 0.0 x10^3/uL (0.0-0.2) D-Dimer (Bethany) 0.45 ug/mlFEU (0.00-0.50) Sodium Level 143 mmol/L (136-145) Potassium Level 3.5 mmol/L (3.5-5.1) Chloride Level 104 mmol/L (98-107) Carbon Dioxide Level 29 mmol/L (21-32) Anion Gap 10 (6-14) Blood Urea Nitrogen 13 mg/dL (7-20) Creatinine 0.8 mg/dL (0.6-1.0) Estimated GFR (Cockcroft-Gault) 103.3 BUN/Creatinine Ratio 16 (6-20) Glucose Level 73 mg/dL (70-99) Calcium Level 9.1 mg/dL (8.5-10.1) Magnesium Level 1.8 mg/dL (1.8-2.4) Total Bilirubin 0.3 mg/dL (0.2-1.0) Aspartate Amino Transferase (AST) 28 U/L (15-37) Alanine Aminotransferase (ALT) 56 U/L (14-59) Alkaline Phosphatase 73 U/L (46-116) Troponin I Quantitative < 0.017 ng/mL (0.000-0.055) Total Protein 8.7 g/dL (6.4-8.2) H Albumin 3.8 g/dL (3.4-5.0) Albumin/Globulin Ratio 0.8 (1.0-1.7) L Urine Collection Type Unknown Urine Color Yellow Urine Clarity Cloudy Urine pH 6.5 Urine Specific [place] 1.025 Urine Protein Negative mg/dL (NEG-TRACE) Urine Glucose (UA) Negative mg/dL (NEG) Urine Ketones (Stick) Negative mg/dL (NEG) Urine Blood Small (NEG) Urine Nitrite Negative (NEG) Urine Bilirubin Negative (NEG) Urine Urobilinogen Dipstick 1.0 mg/dL (0.2 mg/dL) Urine Leukocyte Esterase Small (NEG) Urine RBC 3-5 /HPF (0-2) Urine WBC 5-10 /HPF (0-4) Urine Squamous Epithelial Cells Mod /LPF Urine Bacteria Moderate /HPF (0-FEW) Urine Mucus Mod /LPF Urine Test Negative (NEG) Laboratory Tests 11/24/17 22:50 Laboratory Tests 11/24/17 22:50 EKG EKG [] Radiology/Procedures Radiology/Procedures [] Course & Med Decision Making Course & Med Decision Making Pertinent Labs and Imaging studies reviewed. (See chart for details) Discussed pt's case and plan of care with Dr. Nugent who viewed pt's xray of chest and lt ankle with no abnorm. findings. 0014: Discussed test results with pt- pt reports her chest discomfort has improved following dose of toradol. She remains nontoxic in appearance and in no visible distress during this discussion. Pt's EKG with no acute STEMI and troponin <0.017- DDimer 0.45. UCG neg. and UA with 5-10 WBCs moderate bacteria and squamous cells- pt although initially reporting she doesn't have monthly menses during this discussion reports she had some vaginal bleeding 3 wks ago. She denies urinary sxs. Lt ankle xray with no acute findings- will have adele wrap applied. She remains neuro/vascular intact. Pt plans to call for appt with PCP tomorrow. Education provided on s&s to return to ER for. Discharge instructions were discussed. Dragon Disclaimer Dragon Disclaimer This electronic medical record was generated, in whole or in part, using a voice recognition dictation system. Departure Departure Impression: Primary Impression: Chest pain of uncertain etiology Additional Impression: Left lateral ankle pain Disposition: 01 HOME, SELF-CARE Condition: STABLE Referrals: FREDDIE RED (PCP) Patient Instructions: Ankle Pain, Chest Pain (Nonspecific) Additional Instructions: As discussed call and schedule appointment with your primary doctor for re- evaluation in next 2-3 days. Tylenol and/or ibuprofen as needed for pain as directed on container. Problem Qualifiers JOSEPHINE CH APRN Nov 24, 2017 23:10
[2017-11-24 23:13] LABS: CALCIUM 9.1 mg/dL (8.5-10.1); CREATININE 0.8 mg/dL (0.6-1.0); GFR 103.3; POTASSIUM 3.5 mmol/L (3.5-5.1)
[2017-11-24] MEDS ORDERED: KETOROLAC 15 MG/ML VIAL. IV ONE (23:15)
[2017-11-24 23:19] LABS: ALBUMIN 3.8 g/dL (3.4-5.0); ALBUMIN/GLOBULIN RATIO 0.8 (1.0-1.7); MAGNESIUM 1.8 mg/dL (1.8-2.4); TOTAL BILIRUBIN 0.3 mg/dL (0.2-1.0); TOTAL PROTEIN 8.7 g/dL (6.4-8.2)
[2017-11-24 23:23] LABS: BILIRUBIN,URINE NEGATIVE (NEG); CLARITY,URINE CLOUDY; COLOR,URINE YELLOW; NITRITE,URINE NEGATIVE (NEG); PH,URINE 6.5; PROTEIN,URINE NEGATIVE (NEG-TRACE)
[2017-11-24 23:27] LABS: U PREG PATIENT NEGATIVE (NEG)
[2017-11-24 23:31] LABS: BACTERIA,URINE MODERATE /HPF (0-FEW); SQUAMOUS EPITHELIAL CELL,UR MOD /LPF
[2017-11-25] VITALS: BP 133/59
--- NOTE | 2017-11-25 04:54 | RAD ---
Indication:COUGH TECHNIQUE:PA and lateral views of the chest COMPARISON: 07/23/2017 FINDINGS: Heart is normal in size. Bibasilar infiltrates are seen. No focal consolidation. No pneumothorax or pleural effusion. Visualized bony thorax within normal limits. IMPRESSION: Mild bibasilar streaky infiltrates, right more than left may represent aspiration or developing pneumonia. Electronically signed by: Sharath Frederick DO (11/25/2017 4:50 AM) [facility]
--- NOTE | 2017-11-25 04:55 | RAD ---
Indication:ANKLE PAIN TECHNIQUE: 3 views of the left ankle COMPARISON:None FINDINGS: No acute fracture or dislocation. Ankle mortise is intact. Small plantar calcaneal spur. No significant degenerative changes. IMPRESSION: As above. Electronically signed by: Sharath Frederick DO (11/25/2017 4:52 AM) [facility]
--- NOTE | 2017-11-25 06:18 | EKG ---
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
== END 2017-11-25 00:33 | disposition home or self-care (01) ==
LOC: ER 22:33
DX: R07.89 Other chest pain (principal); M25.572 Pain in left ankle and joints of left foot; F17.200 Nicotine dependence, unspecified, uncomplicated
CPT/HCPCS: 36415; 71046; 73610; 80053; 81001; 81025; 83735; 84484; 85025; 85379; 87086; 93005; 96374; 99285; J1885

== ENCOUNTER 2017-12-04 23:28 | Emergency (ER) | payer OTHER ==
[~2017-12-04] VITALS: Ht 167.6 cm; Wt 129.3 kg
[2017-12-05 00:50] LABS: BASO % 1 % (0-3); EOS # 0.3 x10^3/uL (0.0-0.7); EOS % 5 % (0-3); HEMATOCRIT 39.3 % (36.0-47.0); HEMOGLOBIN 12.9 g/dL (12.0-15.5); LYMPH # 2.7 x10^3/uL (1.0-4.8); LYMPH % 37 % (24-48); MEAN CORPUSCULAR HEMOGLOBIN 26 pg (25-35); MEAN CORPUSCULAR HGB CONC 33 g/dL (31-37); MEAN CORPUSCULAR VOLUME 78 fL (79-100); MONO # 0.5 x10^3/uL (0.0-1.1); MONO % 8 % (0-9); NEUT # 3.6 x10^3uL (1.8-7.7); NEUT % 50 % (31-73); PLATELET COUNT 172 x10^3/uL (140-400); RED BLOOD COUNT 5.04 x10^6/uL (3.50-5.40); RED CELL DISTRIBUTION WIDTH 15.6 % (11.5-14.5); WHITE BLOOD COUNT 7.2 x10^3/uL (4.0-11.0)
[2017-12-05] MEDS: ONDANSETRON PF 4 MG/2 ML VIAL. IV ONE (00:57)
[2017-12-05] MEDS: IV NORMAL SALINE 1000ML BAG 1,000 ML IV ONE (00:57)
[2017-12-05 01:07] LABS: CALCIUM 9.4 mg/dL (8.5-10.1); GFR 79.9; POTASSIUM 3.7 mmol/L (3.5-5.1)
[2017-12-05 01:13] LABS: ALBUMIN 3.7 g/dL (3.4-5.0); ALBUMIN/GLOBULIN RATIO 0.7 (1.0-1.7); TOTAL BILIRUBIN 0.2 mg/dL (0.2-1.0); TOTAL PROTEIN 8.7 g/dL (6.4-8.2)
[2017-12-05 01:58] VITALS: BP 147/69
[2017-12-05 03:29] LABS: BILIRUBIN,URINE NEGATIVE (NEG); CLARITY,URINE CLEAR; COLOR,URINE YELLOW; NITRITE,URINE NEGATIVE (NEG); PROTEIN,URINE NEGATIVE (NEG-TRACE)
[2017-12-05] MEDS ORDERED: ONDA4TAB7 PO (03:54)
--- NOTE | 2017-12-05 03:54 | PHYS DOC ---
Past Medical History Past Medical History: No Pertinent History, Other Additional Past Medical Histor: ECTOPIC Past Surgical History: Other Additional Past Surgical Histo: tumor removal as a child, TUBAL Alcohol Use: Occasionally Drug Use: None Adult General Chief Complaint Chief Complaint: NAUSEA/VOMITING/DIARRHA HPI HPI Patient is a 27 year old -[place] female presents with multiple medical complaints. Some onset earlier this evening. Patient reports feeling dizzy and lightheaded, nauseated without vomiting. Reports increased urinary frequency. No chest pain, shortness of breath, palpitations. No fever chills or sweats. No leg pain or swelling. No history of DVT or PE. No other acute symptoms or complaints. [] Review of Systems Review of Systems ROS as per HPI All other systems were reviewed and found to be within normal limits, except as documented in this note. Current Medications Current Medications Current Medications Medications (Trade) Dose Ordered Sig/Kelly Start Time Stop Time Status Last Admin Dose Admin Ondansetron HCl (Zofran) 4 mg 1X ONCE 12/05/17 00:45 12/05/17 00:46 DC 12/05/17 00:57 4 MG Sodium Chloride 1,000 ml @ 1,000 mls/hr 1X ONCE 12/05/17 00:45 12/05/17 01:44 DC 12/05/17 00:57 1,000 MLS/HR Allergies Allergies Allergies Coded Allergies Type Severity Reaction Last Updated Verified No Known Drug Allergies 06/22/13 No Physical Exam Physical Exam Constitutional: Well developed, well nourished, no acute distress, non-toxic appearance. [] HENT: Normocephalic, atraumatic, bilateral external ears normal, oropharynx moist, , nose normal. [] Eyes: PERRLA, EOMI, conjunctiva normal. [] Neck: Normal range of motion, no tenderness, supple. [] Cardiovascular:Heart rate regular rhythm, no murmur, negative gael's sign. [] Lungs & Thorax: Bilateral breath sounds clear to auscultation [] Abdomen: Bowel sounds normal, soft, no tenderness. [] Skin: Warm, dry, no erythema, no rash. [] Back: No tenderness. [] Extremities: No tenderness, no edema. [] Neurologic: Alert and oriented X 3, normal motor function, normal sensory function, no focal deficits noted. [] Psychologic: Affect normal, judgement normal, mood normal. [] Current Patient Data Vital Signs Vital Signs Date Time Temp Pulse Resp B/P (MAP) Pulse Ox O2 Delivery O2 Flow Rate FiO2 12/05/17 00:01 98.7 95 18 115/82 (93) 98 Room Air 98.7 Lab Values Laboratory Tests Test 12/05/17 00:36 12/05/17 03:10 White Blood Count 7.2 x10^3/uL (4.0-11.0) Red Blood Count 5.04 x10^6/uL (3.50-5.40) Hemoglobin 12.9 g/dL (12.0-15.5) Hematocrit 39.3 % (36.0-47.0) Mean Corpuscular Volume 78 fL (79-100) L Mean Corpuscular Hemoglobin 26 pg (25-35) Mean Corpuscular Hemoglobin Concent 33 g/dL (31-37) Red Cell Distribution Width 15.6 % (11.5-14.5) H Platelet Count 172 x10^3/uL (140-400) Neutrophils (%) (Auto) 50 % (31-73) Lymphocytes (%) (Auto) 37 % (24-48) Monocytes (%) (Auto) 8 % (0-9) Eosinophils (%) (Auto) 5 % (0-3) H Basophils (%) (Auto) 1 % (0-3) Neutrophils # (Auto) 3.6 x10^3uL (1.8-7.7) Lymphocytes # (Auto) 2.7 x10^3/uL (1.0-4.8) Monocytes # (Auto) 0.5 x10^3/uL (0.0-1.1) Eosinophils # (Auto) 0.3 x10^3/uL (0.0-0.7) Basophils # (Auto) 0.0 x10^3/uL (0.0-0.2) Sodium Level 140 mmol/L (136-145) Potassium Level 3.7 mmol/L (3.5-5.1) Chloride Level 103 mmol/L (98-107) Carbon Dioxide Level 27 mmol/L (21-32) Anion Gap 10 (6-14) Blood Urea Nitrogen 14 mg/dL (7-20) Creatinine 1.0 mg/dL (0.6-1.0) Estimated GFR (Cockcroft-Gault) 79.9 BUN/Creatinine Ratio 14 (6-20) Glucose Level 91 mg/dL (70-99) Calcium Level 9.4 mg/dL (8.5-10.1) Total Bilirubin 0.2 mg/dL (0.2-1.0) Aspartate Amino Transferase (AST) 17 U/L (15-37) Alanine Aminotransferase (ALT) 30 U/L (14-59) Alkaline Phosphatase 62 U/L (46-116) Total Protein 8.7 g/dL (6.4-8.2) H Albumin 3.7 g/dL (3.4-5.0) Albumin/Globulin Ratio 0.7 (1.0-1.7) L Lipase 101 U/L (73-393) POC Urine HCG, Qualitative Hcg negative (Negative) Laboratory Tests 12/05/17 00:36 Laboratory Tests 12/05/17 00:36 EKG EKG ] Radiology/Procedures Radiology/Procedures [] Course & Med Decision Making Course & Med Decision Making Pertinent Labs and Imaging studies reviewed. (See chart for details) [Normal physical exam and labs. Patient bowel signs stable in the emergency department. Recommend supportive care rest, PCP follow-up for reevaluation early next week. Return precautions reviewed.] Dragon Disclaimer Dragon Disclaimer This electronic medical record was generated, in whole or in part, using a voice recognition dictation system. Departure Departure Impression: Primary Impression: Dizziness Additional Impression: Nausea Disposition: 01 HOME, SELF-CARE Condition: GOOD Referrals: FREDDIE RED (PCP) Patient Instructions: Dizziness, [id number], Nausea, Adult, [id number] Additional Instructions: Please increase fluids and take nausea medications as directed. Follow up with your PCP early next week. Return to the ED if new or worsening symptoms. Scripts Ondansetron Hcl (ZOFRAN) 4 Mg Tablet 1 TAB PO Q6HRS, #10 TAB 0 Refills Prov: TRICIA HERNANDEZ DO 12/05/17 Problem Qualifiers TRICIA HERNANDEZ DO Dec 05, 2017 03:54
[2017-12-05 04:11] LABS: BACTERIA,URINE MODERATE /HPF (0-FEW)
[2017-12-05 04:12] LABS: SQUAMOUS EPITHELIAL CELL,UR FEW /LPF
== END 2017-12-05 04:08 | disposition home or self-care (01) ==
LOC: ER 23:28
DX: R42 Dizziness and giddiness (principal); R11.0 Nausea; R35.0 Frequency of micturition
CPT/HCPCS: 36415; 80053; 81001; 81025; 83690; 85025; 87086; 96374; 99284; J2405; J7030

== ENCOUNTER 2018-04-24 13:18 | Emergency (ER) | payer OTHER ==
[~2018-04-24] VITALS: Ht 167.6 cm; Wt 136.1 kg
[~2018-04-24 13:18] MED LIST changes: +HYDR-3164 PO; -HYDR-971 PO; +ONDA4TAB7 PO
--- NOTE | 2018-04-24 13:45 | PHYS DOC ---
Past Medical History Past Medical History: No Pertinent History, Other Additional Past Medical Histor: ECTOPIC (PRESTON HDZ BASKETBALL REFEREE) Past Surgical History: Other Additional Past Surgical Histo: tumor removal as a child, TUBAL (PRESTON HDZ BASKETBALL REFEREE) Alcohol Use: Occasionally Drug Use: None (PRESTON HDZ BASKETBALL REFEREE) Adult General Chief Complaint Chief Complaint: VAGINAL BLEEDING [facility] Patient is a 27 year old female who presents with found out that she was and has an OB doctor that she sees. Patient states that she hasn't had her first appointment for ultrasound yet. Patient states that the last 2 days she's had some vaginal bleeding with the consistency of a light. With some small blood clots. Patient denies any abdominal pain, dysuria, fever. Patient states she's had a miscarriage before in the past and wants to make sure she is not having another miscarriage. (PRESTON HDZ BASKETBALL REFEREE) Review of Systems Review of Systems Constitutional: Denies fever or chills [] Eyes: Denies change in visual acuity, redness, or eye pain [] HENT: Denies nasal congestion or sore throat [] Respiratory: Denies cough or shortness of breath [] Cardiovascular: No additional information not addressed in HPI [] GI: Denies abdominal pain, nausea, vomiting, bloody stools or diarrhea [] : Vaginal bleeding and . Denies dysuria or hematuria [] Musculoskeletal: Denies back pain or joint pain [] Integument: Denies rash or skin lesions [] Neurologic: Denies headache, focal weakness or sensory changes [] All other systems were reviewed and found to be within normal limits, except as documented in this note. ([facility]FEREE) Allergies Allergies Allergies Coded Allergies Type Severity Reaction Last Updated Verified No Known Drug Allergies 06/22/13 No (LAQUITA CALLAWAY MD) Physical Exam Physical Exam Constitutional: Well developed, well nourished, no acute distress, non-toxic appearance. [] HENT: Normocephalic, atraumatic, bilateral external ears normal, oropharynx moist, no oral exudates, nose normal. [] Eyes: PERRLA, EOMI, conjunctiva normal, no discharge. [] Neck: Normal range of motion, no tenderness, supple, no stridor. [] Cardiovascular:Heart rate regular rhythm, no murmur [] Lungs & Thorax: Bilateral breath sounds clear to auscultation [] Abdomen: Bowel sounds normal, soft, no tenderness, no masses, no pulsatile masses. Vaginal bleeding. [] Skin: Warm, dry, no erythema, no rash. [] Back: No tenderness, no CVA tenderness. [] Extremities: No tenderness, no cyanosis, no clubbing, ROM intact, no edema. [] Neurologic: Alert and oriented X 3, normal motor function, normal sensory function, no focal deficits noted. [] Psychologic: Affect normal, judgement normal, mood normal. [] (PRESTON HDZ APRN) Current Patient Data Vital Signs Vital Signs Date Time Temp Pulse Resp B/P (MAP) Pulse Ox O2 Delivery O2 Flow Rate FiO2 04/24/18 17:17 89 20 151/59 (89) 99 Room Air 04/24/18 13:35 98.4 98.4 (LAQUITA CALLAWAY MD) Lab Values Laboratory Tests Test 04/24/18 13:28 04/24/18 13:31 04/24/18 14:00 Urine Collection Type Unknown Urine Color Yellow Urine Clarity Cloudy Urine pH 7.5 Urine Specific [place] 1.020 Urine Protein Negative mg/dL (NEG-TRACE) Urine Glucose (UA) Negative mg/dL (NEG) Urine Ketones (Stick) Negative mg/dL (NEG) Urine Blood Trace (NEG) Urine Nitrite Negative (NEG) Urine Bilirubin Negative (NEG) Urine Urobilinogen Dipstick 1.0 mg/dL (0.2 mg/dL) Urine Leukocyte Esterase Small (NEG) Urine RBC Occ /HPF (0-2) Urine WBC Occ /HPF (0-4) Urine Squamous Epithelial Cells Many /LPF Urine Bacteria Many /HPF (0-FEW) POC Urine HCG, Qualitative Hcg positive (Negative) White Blood Count 8.1 x10^3/uL (4.0-11.0) Red Blood Count 5.01 x10^6/uL (3.50-5.40) Hemoglobin 12.2 g/dL (12.0-15.5) Hematocrit 38.1 % (36.0-47.0) Mean Corpuscular Volume 76 fL (79-100) L Mean Corpuscular Hemoglobin 24 pg (25-35) L Mean Corpuscular Hemoglobin Concent 32 g/dL (31-37) Red Cell Distribution Width 15.7 % (11.5-14.5) H Platelet Count 182 x10^3/uL (140-400) Neutrophils (%) (Auto) 63 % (31-73) Lymphocytes (%) (Auto) 27 % (24-48) Monocytes (%) (Auto) 7 % (0-9) Eosinophils (%) (Auto) 3 % (0-3) Basophils (%) (Auto) 1 % (0-3) Neutrophils # (Auto) 5.1 x10^3uL (1.8-7.7) Lymphocytes # (Auto) 2.1 x10^3/uL (1.0-4.8) Monocytes # (Auto) 0.5 x10^3/uL (0.0-1.1) Eosinophils # (Auto) 0.3 x10^3/uL (0.0-0.7) Basophils # (Auto) 0.1 x10^3/uL (0.0-0.2) Maternal Serum HCG Beta Subunit 98987 mIU/mL (0-5) H Sodium Level 137 mmol/L (136-145) Potassium Level 3.6 mmol/L (3.5-5.1) Chloride Level 101 mmol/L (98-107) Carbon Dioxide Level 24 mmol/L (21-32) Anion Gap 12 (6-14) Blood Urea Nitrogen 12 mg/dL (7-20) Creatinine 0.7 mg/dL (0.6-1.0) Estimated GFR (Cockcroft-Gault) 120.6 BUN/Creatinine Ratio 17 (6-20) Glucose Level 132 mg/dL (70-99) H Calcium Level 9.0 mg/dL (8.5-10.1) Total Bilirubin 0.2 mg/dL (0.2-1.0) Aspartate Amino Transferase (AST) 11 U/L (15-37) L Alanine Aminotransferase (ALT) 18 U/L (14-59) Alkaline Phosphatase 62 U/L (46-116) Total Protein 8.2 g/dL (6.4-8.2) Albumin 3.4 g/dL (3.4-5.0) Albumin/Globulin Ratio 0.7 (1.0-1.7) L Laboratory Tests 2/23/19 14:00 Laboratory Tests 04/24/18 14:00 (LAQUITA CALLAWAY MD) EKG EKG [] (PRESTON HDZ APRN) Radiology/Procedures Radiology/Procedures OB US (PRESTON HDZ APRN) Impressions: [facility] [address] [place] [address] IMAGING REPORT Signed PATIENT: CHILO EM ACCOUNT: [id number] : 1990 LOCATION: ER AGE: 27 SEX: F EXAM STATUS: REG ER ORD. PHYSICIAN: PRESTON HDZ APRN REASON: bleeding with , sono notified 1:48 PROCEDURE: OB <14 WKS W/TV Ultrasound obstetrics less than 14 weeks with transvaginal ultrasound 04/24/2018 CLINICAL INDICATION: Bleeding in early . COMPARISON: None. FINDINGS: Transabdominal and endovaginal images were obtained. Uterus measures 12.5 x 5.9 x 5.7 cm. There is an intrauterine gestational sac with eccentric yolk sac and demonstration of a pole consistent with estimated gestational age of 7 weeks 3 days. heart rate is identified estimated at 147 bpm. Right ovary measures 3.8 x 2.5 x 3.5 cm. There is a thick-walled right ovarian cyst with a debris fluid level measuring 2.0 x 1.9 x 3.4 cm. Normal caliber Doppler imaging of the right ovary. Left ovary measures 3.4 x 2.0 x 1.9 cm with normal color Doppler imaging. No significant pelvic free fluid. IMPRESSION: 1. Single intrauterine with estimated gestational age of 7 weeks 3 days and estimated heart rate of 147 bpm. 2. Right ovarian complex cyst with debris fluid level, may represent a hemorrhagic cyst or hemorrhagic corpus luteum. Follow-up ultrasound in 6 weeks is recommended to assess for resolution. 3. No ovarian torsion. Electronically signed by: Alisha Pantoja MD (04/24/2018 3:51 PM) [facility] [place] DICTATED and SIGNED BY: ALISHA PANTOJA MD DATE: 04/24/18 1546 (PRESTON HDZ APRN) Course & Med Decision Making Course & Med Decision Making Patient is a 27 year old female who presents with found out that she was and has an OB doctor that she sees. Patient states that she hasn't had her first appointment for ultrasound yet. Patient states that the last 2 days she's had some vaginal bleeding with the consistency of a light. With some small blood clots. Patient denies any abdominal pain, dysuria, fever. Patient states she's had a miscarriage before in the past and wants to make sure she is not having another miscarriage. Alert and oriented. Walks with a steady gait. Skin pink warm and dry. Mucous membranes moist. Vital signs are within normal limits. Patient denies any pain at this time. Abdomen is soft and nontender. Patient denies any abnormal vaginal discharge other than the bleeding. No extremity swelling. Lungs are clear to auscultation in all lobes. Heart rate regular without murmur. Patient denies any shortness of air, chest pain, dizziness, numbness or tingling. Patient states her last period was possibly 2- 3 months ago and does not know a date. Blood work unremarkable. Patient is a positive. Urinalysis shows no infection. Ultra sound shows 1. Single intrauterine with estimated gestational age of 7 weeks 3 days and estimated heart rate of 147 bpm. 2. Right ovarian complex cyst with debris fluid level, may represent a hemorrhagic cyst or hemorrhagic corpus luteum. Follow-up ultrasound in 6 weeks is recommended to assess for resolution. 3. No ovarian torsion. Patient follow- up with her REGROOVER as soon as possible. Patients come back she starts having abdominal pain and increased bleeding. (PRESTON HDZ APRN) Course & Med Decision Making Staff Physician Addendum: I was working in the ER during the course of this patient's visit. I was available for consultation as needed, but I was not directly involved in the care of this patient. (LAQUITA CALLAWAY MD) Dragon Disclaimer Dragon Disclaimer This electronic medical record was generated, in whole or in part, using a voice recognition dictation system. (PRESTON HDZ APRN) Departure Departure Impression: Primary Impression: Vaginal bleeding during Disposition: 01 HOME, SELF-CARE Condition: STABLE Referrals: FREDDIE RED (PCP) Patient Instructions: Vaginal Bleeding During , First Trimester Additional Instructions: Call your REGROOVER as soon as possible. Return for abdominal pain and increased bleeding. PRESTON HDZ APRN Apr 24, 2018 13:45 LAQUITA CALLAWAY MD Apr 26, 2018 00:52
[2018-04-24 13:52] LABS: BILIRUBIN,URINE NEGATIVE (NEG); CLARITY,URINE CLOUDY; COLOR,URINE YELLOW; NITRITE,URINE NEGATIVE (NEG); PH,URINE 7.5; PROTEIN,URINE NEGATIVE (NEG-TRACE)
[2018-04-24 14:00] LABS: BACTERIA,URINE MANY /HPF (0-FEW); RBC,URINE OCC /HPF (0-2); SQUAMOUS EPITHELIAL CELL,UR MANY /LPF; WBC,URINE OCC /HPF (0-4)
[2018-04-24 14:08] LABS: BASO # 0.1 x10^3/uL (0.0-0.2); BASO % 1 % (0-3); EOS # 0.3 x10^3/uL (0.0-0.7); EOS % 3 % (0-3); HEMATOCRIT 38.1 % (36.0-47.0); HEMOGLOBIN 12.2 g/dL (12.0-15.5); LYMPH # 2.1 x10^3/uL (1.0-4.8); LYMPH % 27 % (24-48); MEAN CORPUSCULAR HEMOGLOBIN 24 pg (25-35); MEAN CORPUSCULAR HGB CONC 32 g/dL (31-37); MEAN CORPUSCULAR VOLUME 76 fL (79-100); MONO # 0.5 x10^3/uL (0.0-1.1); MONO % 7 % (0-9); NEUT # 5.1 x10^3uL (1.8-7.7); NEUT % 63 % (31-73); PLATELET COUNT 182 x10^3/uL (140-400); RED BLOOD COUNT 5.01 x10^6/uL (3.50-5.40); RED CELL DISTRIBUTION WIDTH 15.7 % (11.5-14.5); WHITE BLOOD COUNT 8.1 x10^3/uL (4.0-11.0)
[2018-04-24 14:19] LABS: CREATININE 0.7 mg/dL (0.6-1.0); GFR 120.6; POTASSIUM 3.6 mmol/L (3.5-5.1)
[2018-04-24 14:24] LABS: ALBUMIN 3.4 g/dL (3.4-5.0); ALBUMIN/GLOBULIN RATIO 0.7 (1.0-1.7); TOTAL BILIRUBIN 0.2 mg/dL (0.2-1.0); TOTAL PROTEIN 8.2 g/dL (6.4-8.2)
--- NOTE | 2018-04-24 15:54 | RAD ---
Ultrasound obstetrics less than 14 weeks with transvaginal ultrasound 04/24/2018 CLINICAL INDICATION: Bleeding in early . COMPARISON: None. FINDINGS: Transabdominal and endovaginal images were obtained. Uterus measures 12.5 x 5.9 x 5.7 cm. There is an intrauterine gestational sac with eccentric yolk sac and demonstration of a pole consistent with estimated gestational age of 7 weeks 3 days. heart rate is identified estimated at 147 bpm. Right ovary measures 3.8 x 2.5 x 3.5 cm. There is a thick-walled right ovarian cyst with a debris fluid level measuring 2.0 x 1.9 x 3.4 cm. Normal caliber Doppler imaging of the right ovary. Left ovary measures 3.4 x 2.0 x 1.9 cm with normal color Doppler imaging. No significant pelvic free fluid. IMPRESSION: 1. Single intrauterine with estimated gestational age of 7 weeks 3 days and estimated heart rate of 147 bpm. 2. Right ovarian complex cyst with debris fluid level, may represent a hemorrhagic cyst or hemorrhagic corpus luteum. Follow-up ultrasound in 6 weeks is recommended to assess for resolution. 3. No ovarian torsion. Electronically signed by: Anderson Pantoja MD (04/24/2018 3:51 PM) [facility]
[2018-04-24 17:17] VITALS: BP 151/59
== END 2018-04-24 17:17 | disposition home or self-care (01) ==
LOC: ER 13:18
DX: O46.91 Antepartum hemorrhage, unspecified, first trimester (principal); O34.81 Maternal care for other abnormalities of pelvic organs, first trimester; N83.201 Unspecified ovarian cyst, right side; Z3A.01 Less than 8 weeks gestation of pregnancy
CPT/HCPCS: 36415; 76801; 76817; 80053; 81001; 81025; 84702; 85025; 86850; 86900; 86901; 87086; 99284-25

== ENCOUNTER 2018-12-30 22:49 | Emergency (ER) | payer OTHER ==
[~2018-12-30] VITALS: Ht 165.1 cm; Wt 128.8 kg
[2018-12-30 22:55] VITALS: BP 160/100
--- NOTE | 2018-12-30 23:28 | PHYS DOC ---
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 States for the past 2 days she has had a sore throat, some nasal congestion, dry unproductive cough, and states she has felt hot and cold all night at home. States her has URI symptoms at home but no hoarse voice like she has. 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 States she had tried some tylenol earlier today but it did not help her at all. ] (GINO ROWE APRN) Review of Systems Review of Systems Constitutional: States chills at night, then feeling really hot [] HENT: reports hoarse voice, sore throat, denies ear pain [] Respiratory: Reports occasional cough denies shortness of breath [] Cardiovascular: No additional information not addressed in HPI [] GI: Denies abdominal pain, nausea, vomiting, bloody stools or diarrhea [] : Denies dysuria or hematuria [] Musculoskeletal: Denies back pain or joint pain [] Integument: Denies rash or skin lesions [] Neurologic: Denies headache, focal weakness or sensory changes [] All other systems were reviewed and found to be within normal limits, except as documented in this note. (GINO ROWE APRN) Allergies Allergies Allergies Coded Allergies Type Severity Reaction Last Updated Verified No Known Drug Allergies 06/22/13 No (MAX BRANNON MD) Physical Exam Physical Exam Constitutional: Well developed, well nourished, no acute distress, non-toxic appearance., noted hoarse voice [] HENT: Normocephalic, atraumatic, bilateral external ears normal, oropharynx m oist, Tonsils 2+ with small amount purulence & erythema, nose normal. [] Neck: Normal range of motion, no tenderness, supple, no stridor. [] Cardiovascular:Heart rate regular rhythm, no murmur [] Lungs & Thorax: Bilateral breath sounds clear to auscultation [] Abdomen: Bowel sounds normal, soft, no tenderness, no masses, no pulsatile masses. [] Skin: Warm, dry, no erythema, no rash. [] Extremities: No tenderness, no cyanosis, no clubbing, ROM intact, no edema. [] Neurologic: Alert and oriented X 3, normal motor function, normal sensory function, no focal deficits noted. [] Psychologic: Affect normal, judgement normal, mood normal. [] (GINO ROWE APRN) Current Patient Data Vital Signs Vital Signs Date Time Temp Pulse Resp B/P (MAP) Pulse Ox O2 Delivery O2 Flow Rate FiO2 12/30/18 22:55 97.9 87 18 160/100 (120) 98 Room Air 97.9 (MAX BRANNON MD) EKG EKG [] (GINO ROWE APRN) Radiology/Procedures Radiology/Procedures [] (GINO ROWE APRN) Course & Med Decision Making Course & Med Decision Making Pertinent Labs and Imaging studies reviewed. (See chart for details) []Discussed negative strep findings, discussed viral syndrome, similar to spou se. Discussed follow up with PCP, continued tylenol/ibuprofen, hydration and rest. Patient without further questions or concerns. (GINO ROWE APRN) Dragon Disclaimer Dragon Disclaimer This electronic medical record was generated, in whole or in part, using a voice recognition dictation system. (GINO ROWE APRN) Attending Signature I have participated in the care of this patient and I have reviewed and agree with all pertinent clinical information above including history, exam, and recommendations. (MAX BRANNON MD) Departure Departure Impression: Primary Impression: Pharyngitis Disposition: HOME, SELF-CARE Condition: STABLE Referrals: NO PCP (PCP) Patient Instructions: Viral Pharyngitis Additional Instructions: As we discussed, Take Tylenol or ibuprofen for discomfort. Stay hydrated, drink plenty of fluids. Follow up with your primary care provider. Make sure you are washing your hands. For your throat you can try some sore throat lozenges or Chloraseptic spray. Continue to drink the tea with honey. Return to work on Thursday Problem Qualifiers Primary Impression: Pharyngitis Pharyngitis/tonsillitis etiology: unspecified etiology Qualified Codes: J02.9 - Acute pharyngitis, unspecified GINO ROWE APRN Dec 30, 2018 23:28 MAX BRANNON MD Dec 31, 2018 01:46
== END 2018-12-30 23:48 | disposition home or self-care (01) ==
LOC: ER 22:49
DX: J02.9 Acute pharyngitis, unspecified (principal)
CPT/HCPCS: 87070; 87880; 99283

== ENCOUNTER 2019-01-24 16:59 | Emergency (ER) | payer OTHER ==
[~2019-01-24] VITALS: Ht 165.1 cm; Wt 129.3 kg
[2019-01-24] MEDS ORDERED: IV NORMAL SALINE 1000ML BAG 1,000 ML IV SCH (17:20)
[2019-01-24] MEDS ORDERED: ASPIRIN 325 MG TABLET PO ONE (17:30)
[2019-01-24 17:32] LABS: BASO # 0.1 x10^3/uL (0.0-0.2); BASO % 1 % (0-3); EOS # 0.4 x10^3/uL (0.0-0.7); EOS % 6 % (0-3); HEMATOCRIT 40.8 % (36.0-47.0); HEMOGLOBIN 13.2 g/dL (12.0-15.5); LYMPH # 2.6 x10^3/uL (1.0-4.8); LYMPH % 40 % (24-48); MEAN CORPUSCULAR HEMOGLOBIN 24 pg (25-35); MEAN CORPUSCULAR HGB CONC 32 g/dL (31-37); MEAN CORPUSCULAR VOLUME 76 fL (79-100); MONO # 0.3 x10^3/uL (0.0-1.1); MONO % 5 % (0-9); NEUT # 3.3 x10^3/uL (1.8-7.7); NEUT % 49 % (31-73); PLATELET COUNT 177 x10^3/uL (140-400); RED CELL DISTRIBUTION WIDTH 17.6 % (11.5-14.5); WHITE BLOOD COUNT 6.7 x10^3/uL (4.0-11.0)
[2019-01-24 17:39] LABS: CALCIUM 8.7 mg/dL (8.5-10.1); CREATININE 0.7 mg/dL (0.6-1.0); GFR 119.7; POTASSIUM 3.5 mmol/L (3.5-5.1)
[2019-01-24 17:42] LABS: PROTHROMBIN TIME PATIENT 13.1 SEC (11.7-14.0)
[2019-01-24 17:45] LABS: ALBUMIN 3.8 g/dL (3.4-5.0); ALBUMIN/GLOBULIN RATIO 0.8 (1.0-1.7); TOTAL BILIRUBIN 0.3 mg/dL (0.2-1.0); TOTAL PROTEIN 8.7 g/dL (6.4-8.2)
--- NOTE | 2019-01-24 17:50 | PHYS DOC ---
Past Medical History Past Medical History: Depression, Hypertension, Other Additional Past Medical Histor: ECTOPIC Past Surgical History: Other Additional Past Surgical Histo: tumor removal as a child, TUBAL Additional Information: pt states she smoke Black and Mild's - 1 per day Alcohol Use: Occasionally Drug Use: None Adult General Chief Complaint Chief Complaint: CHEST PAIN HPI HPI Patient is a 28 year old female who presents with chest pain that started yesterday morning and states is more so on the left side but she did feel at all across the chest. Patient states it hurts when she moves her arms only. 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 Patient states she has had a cough lately. Patient has no pain at rest and no pain at this time. She states she did take ibuprofen yesterday and it did help. Review of Systems Review of Systems Respiratory: cough or denies shortness of breath [] Cardiovascular: Chest pain All other systems were reviewed and found to be within normal limits, except as documented in this note. Current Medications Current Medications Current Medications Medications (Trade) Dose Ordered Sig/Kelly Start Time Stop Time Status Last Admin Dose Admin Aspirin (Jovanni Aspirin) 325 mg 1X ONCE 01/24/19 17:30 01/24/19 17:31 DC 01/24/19 17:40 325 MG Ketorolac Tromethamine (Toradol 30mg Vial) 30 mg 1X ONCE 01/24/19 20:00 01/24/19 20:01 UNV Sodium Chloride 1,000 ml @ 1,000 mls/hr Q1H 01/24/19 17:20 01/24/19 18:19 DC 01/24/19 17:41 1,000 MLS/HR Allergies Allergies Allergies Coded Allergies Type Severity Reaction Last Updated Verified No Known Drug Allergies 06/22/13 No Physical Exam Physical Exam Constitutional: Well developed, well nourished, no acute distress, non-toxic appearance. [] HENT: Normocephalic, atraumatic, bilateral external ears normal, oropharynx moist, no oral exudates, nose normal. [] Eyes: PERRLA, EOMI, conjunctiva normal, no discharge. [] Neck: Normal range of motion, no tenderness, supple, no stridor. [] Cardiovascular:Heart rate regular rhythm, no murmur [] Lungs & Thorax: Bilateral breath sounds clear to auscultation [] Abdomen: Bowel sounds normal, soft, no tenderness, no masses, no pulsatile masses. [] Skin: Warm, dry, no erythema, no rash. [] Back: No tenderness, no CVA tenderness. [] Extremities: No tenderness, no cyanosis, no clubbing, ROM intact, no edema. [] Neurologic: Alert and oriented X 3, normal motor function, normal sensory function, no focal deficits noted. [] Psychologic: Affect normal, judgement normal, mood normal. Normal Physical Exam[] Current Patient Data Vital Signs Vital Signs Date Time Temp Pulse Resp B/P (MAP) Pulse Ox O2 Delivery O2 Flow Rate FiO2 01/24/19 17:12 98.2 81 22 139/90 (106) 96 Room Air 98.2 Lab Values Laboratory Tests Test 01/24/19 17:18 01/24/19 18:30 White Blood Count 6.7 x10^3/uL (4.0-11.0) Red Blood Count 5.40 x10^6/uL (3.50-5.40) Hemoglobin 13.2 g/dL (12.0-15.5) Hematocrit 40.8 % (36.0-47.0) Mean Corpuscular Volume 76 fL (79-100) L Mean Corpuscular Hemoglobin 24 pg (25-35) L Mean Corpuscular Hemoglobin Concent 32 g/dL (31-37) Red Cell Distribution Width 17.6 % (11.5-14.5) H Platelet Count 177 x10^3/uL (140-400) Neutrophils (%) (Auto) 49 % (31-73) Lymphocytes (%) (Auto) 40 % (24-48) Monocytes (%) (Auto) 5 % (0-9) Eosinophils (%) (Auto) 6 % (0-3) H Basophils (%) (Auto) 1 % (0-3) Neutrophils # (Auto) 3.3 x10^3/uL (1.8-7.7) Lymphocytes # (Auto) 2.6 x10^3/uL (1.0-4.8) Monocytes # (Auto) 0.3 x10^3/uL (0.0-1.1) Eosinophils # (Auto) 0.4 x10^3/uL (0.0-0.7) Basophils # (Auto) 0.1 x10^3/uL (0.0-0.2) Prothrombin Time 13.1 SEC (11.7-14.0) Prothrombin Time INR 1.0 (0.8-1.1) Sodium Level 142 mmol/L (136-145) Potassium Level 3.5 mmol/L (3.5-5.1) Chloride Level 104 mmol/L (98-107) Carbon Dioxide Level 27 mmol/L (21-32) Anion Gap 11 (6-14) Blood Urea Nitrogen 11 mg/dL (7-20) Creatinine 0.7 mg/dL (0.6-1.0) Estimated GFR (Cockcroft-Gault) 119.7 BUN/Creatinine Ratio 16 (6-20) Glucose Level 73 mg/dL (70-99) Calcium Level 8.7 mg/dL (8.5-10.1) Total Bilirubin 0.3 mg/dL (0.2-1.0) Aspartate Amino Transferase (AST) 16 U/L (15-37) Alanine Aminotransferase (ALT) 15 U/L (14-59) Alkaline Phosphatase 79 U/L (46-116) Troponin I Quantitative < 0.017 ng/mL (0.000-0.055) Total Protein 8.7 g/dL (6.4-8.2) H Albumin 3.8 g/dL (3.4-5.0) Albumin/Globulin Ratio 0.8 (1.0-1.7) L Urine Collection Type Unknown Urine Color Yellow Urine Clarity Clear Urine pH 5.5 Urine Specific [place] 1.020 Urine Protein Negative mg/dL (NEG-TRACE) Urine Glucose (UA) Negative mg/dL (NEG) Urine Ketones (Stick) Negative mg/dL (NEG) Urine Blood Negative (NEG) Urine Nitrite Negative (NEG) Urine Bilirubin Negative (NEG) Urine Urobilinogen Dipstick 0.2 mg/dL (0.2 mg/dL) Urine Leukocyte Esterase Negative (NEG) Urine RBC Occ /HPF (0-2) Urine WBC 1-4 /HPF (0-4) Urine Squamous Epithelial Cells Few /LPF Urine Bacteria 0 /HPF (0-FEW) Urine Mucus Marked /LPF Urine Test Negative (NEG) Urine Opiates Screen Neg (NEG) Urine Methadone Screen Neg (NEG) Urine Barbiturates Neg (NEG) Urine Phencyclidine Screen Neg (NEG) Urine Amphetamine/Methamphetamine Neg (NEG) Urine Benzodiazepines Screen Neg (NEG) Urine Cocaine Screen Neg (NEG) Urine Cannabinoids Screen Neg (NEG) Urine Ethyl Alcohol Neg (NEG) Laboratory Tests 01/24/19 17:18 Laboratory Tests 01/24/19 17:18 EKG EKG Sinus rhythm and no STEMI.[] Interpretation Time: [address] Wilkinson Radiology/Procedures Radiology/Procedures [] Course & Med Decision Making Course & Med Decision Making Alert and oriented. Lungs are clear to auscultation lobes. Chest pain is not reproducible with palpation but is reproducible with arm movement. Patient denies shortness of breath, headache, visual changes, numbness or tingling, weakness, abdominal pain, nausea, vomiting, diarrhea, recent illness, asthma. She does have a history of hypertension but cannot remember what medication she takes. Patient is a smoker. Patient states that when the pain started today she became slightly lightheaded and that's when she decided to come to the emergency room. Speaks in full sentences. Ambulatory with a steady gait. No extremity edema. PERC negative. No calf tenderness. No control. X-ray shows no obvious acute findings and read by Dr Andrews. This is likely musculoskeletal pain. Patient to follow up with primary care provider. Corry Disclaimer Corry Disclaimer This electronic medical record was generated, in whole or in part, using a voice recognition dictation system. The HEART Score for CP Pts HEART Score for Chest Pain: HEART Score for Chest Pain Response (Comments) Value History Slighlty/Non-Suspicious 0 ECG Normal 0 Age < 45 0 Risk Factors 1 or 2 Risk Factors 1 Troponin < Normal Limit 0 Total 1 Risk Factors: Risk Factors: DM, Current or recent (<one month) smoker, HTN, HLP, family history of CAD, obesity. Risk Scores: Score 0 - 3: 2.5% MACE over next 6 weeks - Discharge Home Score 4 - 6: 20.3% MACE over next 6 weeks - Admit for Clinical Observation Score 7 - 10: 72.7% MACE over next 6 weeks - Early Invasive Strategies Departure Departure Impression: Primary Impression: Chest wall pain Disposition: HOME, SELF-CARE Condition: STABLE Referrals: TEOFILO DE JESUS MD (PCP) Patient Instructions: Chest Pain (Nonspecific) Additional Instructions: Follow-up with your primary care provider. Take medication as prescribed. Scripts Cyclobenzaprine Hcl (CYCLOBENZAPRINE HCL) 5 Mg Tablet 1 TAB PO TID, #30 TAB Prov: PRESTON HDZ APRN 01/24/19 Ibuprofen (IBUPROFEN) 600 Mg Tablet 600 MG PO PRN Q6HRS PRN for INFLAMMATION, #20 TAB Prov: PRESTON HDZ APRN 01/24/19 PRESTON HDZ APRN Jan 24, 2019 17:50
[2019-01-24 18:37] LABS: BILIRUBIN,URINE NEGATIVE (NEG); CLARITY,URINE CLEAR; COLOR,URINE YELLOW; NITRITE,URINE NEGATIVE (NEG); PH,URINE 5.5; PROTEIN,URINE NEGATIVE (NEG-TRACE); UROBILINOGEN,URINE 0.2 mg/dL (0.2 mg/dL)
[2019-01-24 18:43] LABS: BARBITURATES NEG (NEG); BENZODIAZEPINES NEG (NEG); CANNABINOIDS NEG (NEG); COCAINE NEG (NEG); METHADONE NEG (NEG); OPIATES NEG (NEG); PHENCYCLIDINE NEG (NEG)
[2019-01-24 18:50] LABS: AMPHETAMINE/METHAMPHETAMINE NEG (NEG)
[2019-01-24 18:56] LABS: SQUAMOUS EPITHELIAL CELL,UR FEW /LPF
[2019-01-24 18:57] LABS: BACTERIA,URINE 0 /HPF (0-FEW); RBC,URINE OCC /HPF (0-2)
[2019-01-24 19:01] LABS: U PREG PATIENT NEGATIVE (NEG)
[2019-01-24 20:00] VITALS: BP 136/86
[2019-01-24] MEDS ORDERED: KETOROLAC 30 MG/ML VIAL. IVP ONE (20:00)
[2019-01-24] MEDS ORDERED: CYCL5TAB PO (20:11)
[2019-01-24] MEDS ORDERED: IBUP-1007 PO (20:11)
--- NOTE | 2019-01-25 00:01 | RAD ---
PA and lateral chest radiographs 01/24/2019 Clinical History: Chest pain and shortness of breath for one day. PA and lateral digital radiographs of the chest were obtained. Comparison study is dated 11/24/2017. The cardiac and mediastinal silhouettes are within normal limits in size and configuration. No pulmonary infiltrate is seen. No pleural effusion or pneumothorax is noted. The osseous structures are grossly intact. Impression: No acute abnormality is seen. Electronically signed by: Francis Moncada MD (01/24/2019 11:58 PM) [facility]
--- NOTE | 2019-01-25 05:11 | EKG ---
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
== END 2019-01-24 20:32 | disposition home or self-care (01) ==
LOC: ER 16:59
DX: R07.89 Other chest pain (principal); R05 Cough; R42 Dizziness and giddiness; I10 Essential (primary) hypertension; F32.9 Major depressive disorder, single episode, unspecified; F17.200 Nicotine dependence, unspecified, uncomplicated
CPT/HCPCS: 36415; 71046; 80053; 80307; 81001; 81025; 84484; 85025; 85610; 93005; 96361; 96374; 99285; J1885; J7030; 99283

== ENCOUNTER 2019-05-16 11:31 | Emergency (ER) | payer OTHER ==
[~2019-05-16] VITALS: Ht 165.1 cm; Wt 128.0 kg
[~2019-05-16 11:31] MED LIST changes: +CYCL5TAB PO; +IBUP-1007 PO
--- NOTE | 2019-05-16 12:03 | PHYS DOC ---
Past Medical History Past Medical History: Depression, Hypertension, Other Additional Past Medical Histor: ECTOPIC Past Surgical History: Other Additional Past Surgical Histo: tumor removal as a child, TUBAL Smoking Status: Current Some Day Smoker Alcohol Use: Occasionally Drug Use: None Adult General Chief Complaint Chief Complaint: RECTAL BLEED HPI HPI Patient is a 28 year old female who presents with complaint of sinus pain and congestion, headache as well as abdominal cramping and diarrhea. Patient states symptoms have been present for the last 2-3 days. Patient denies any fever. She denies any cough or shortness breath.[] Review of Systems Review of Systems Constitutional: Denies fever or chills [] HENT: Complains of sinus congestion[] Respiratory: Denies cough or shortness of breath [] Cardiovascular: No additional information not addressed in HPI [] GI: Complains of abdominal cramping with nausea and diarrhea [] : Denies dysuria or hematuria [] Neurologic: Complains of headache without focal weakness or sensory changes [] Allergies Allergies Allergies Coded Allergies Type Severity Reaction Last Updated Verified No Known Drug Allergies 06/22/13 No Physical Exam Physical Exam Constitutional: Well developed, well nourished, no acute distress, non-toxic appearance. [] HENT: Normocephalic, atraumatic, with maxillary tenderness to percussion and palpation, oropharynx moist, no oral exudates, nose normal. [] Cardiovascular:Heart rate regular rhythm, no murmur [] Lungs & Thorax: Bilateral breath sounds clear to auscultation [] Abdomen: Bowel sounds normal, soft, no tenderness. [] Skin: Warm, dry, no erythema, no rash. [] EKG EKG [] Radiology/Procedures Radiology/Procedures [] Course & Med Decision Making Course & Med Decision Making Pertinent Labs and Imaging studies reviewed. (See chart for details) [] Dragon Disclaimer Dragon Disclaimer This electronic medical record was generated, in whole or in part, using a voice recognition dictation system. Departure Departure Impression: Primary Impression: Acute sinusitis Additional Impression: Gastroenteritis Disposition: 01 HOME, SELF-CARE Condition: STABLE Referrals: TEOFILO DE JESUS MD (PCP) Patient Instructions: Sinusitis, Viral Gastroenteritis Scripts Ondansetron (ONDANSETRON ODT) 4 Mg Tab.rapdis 1 TAB PO PRN Q6-8HRS PRN for NAUSEA, #15 TAB Prov: LANI BARRY Jr. DO 05/16/19 Diphenoxylate Hcl/Atropine (LOMOTIL TABLET) 1 Each Tablet 1 TAB PO TID PRN for DIARRHEA, #15 TAB Prov: LANI BARRY Jr. DO 05/16/19 Amoxicillin/Potassium Clav (AUGMENTIN 875-125 TABLET) 1 Each Tablet 1 TAB PO BID for 10 Days, #20 TAB 0 Refills Prov: LANI BARRY Jr. DO 05/16/19 Problem Qualifiers Primary Impression: Acute sinusitis Sinusitis location: maxillary Recurrence: not specified as recurrent Qualified Codes: J01.00 - Acute maxillary sinusitis, unspecified LANI BARRY Jr. DO May 16, 2019 12:03
[2019-05-16] MEDS ORDERED: AMOX1TAB61 PO (12:06)
[2019-05-16] MEDS ORDERED: DIPH1TAB PO (12:06)
[2019-05-16] MEDS ORDERED: ONDA4TAB12 PO (12:06)
[2019-05-16 13:42] VITALS: BP 157/81
== END 2019-05-16 13:42 | disposition home or self-care (01) ==
LOC: ER 11:31
DX: J01.00 Acute maxillary sinusitis, unspecified (principal); K52.9 Noninfective gastroenteritis and colitis, unspecified; I10 Essential (primary) hypertension; F17.200 Nicotine dependence, unspecified, uncomplicated
CPT/HCPCS: 99283

== ENCOUNTER 2019-05-20 22:11 | Emergency (ER) | payer OTHER ==
[~2019-05-20] VITALS: Ht 165.1 cm; Wt 115.9 kg
[~2019-05-20 22:11] MED LIST changes: +DIPH1TAB PO; +ONDA4TAB12 PO
--- NOTE | 2019-05-20 22:38 | PHYS DOC ---
Past Medical History Past Medical History: Depression, Hypertension, Other Additional Past Medical Histor: ECTOPIC , ovarian cyst Past Surgical History: Other Additional Past Surgical Histo: tumor removal as a child, TUBAL Smoking Status: Current Some Day Smoker Alcohol Use: Rarely Drug Use: None Adult General Chief Complaint Chief Complaint: SHORTNESS OF BREATH HPI HPI 28-year-old female presents to the emergency department complaints of sore throat, fever. Temperature 103.1. Patient states she is taken Tylenol [id number] with no significant improvement. Patient describes nausea. She denies any abdominal pain on examination or dysuria. Nothing makes her symptoms better. Patient states she did receive her influenza vaccine. Review of Systems Review of Systems Constitutional: fever Eyes: Denies change in visual acuity, redness, or eye pain [] HENT: + sore throat Respiratory: + Cough Cardiovascular: No additional information not addressed in HPI [] GI: Denies abdominal pain, + nausea, no vomiting, bloody stools or diarrhea [] : Denies dysuria or hematuria [] Musculoskeletal: Denies back pain or joint pain [] Integument: Denies rash or skin lesions [] Neurologic: Denies headache, focal weakness or sensory changes [] All other systems were reviewed and found to be within normal limits, except as documented in this note. Current Medications Current Medications Current Medications Medications (Trade) Dose Ordered Sig/Kelly Start Time Stop Time Status Last Admin Dose Admin Acetaminophen (Tylenol) 1,000 mg 1X ONCE 05/20/19 22:45 05/20/19 22:46 DC 05/20/19 22:55 1,000 MG Ibuprofen (Motrin) 800 mg 1X ONCE 05/20/19 22:45 05/20/19 22:46 DC 05/20/19 22:55 800 MG Penicillin G Benzathine (Bicillin L-A) 1,200,000 unit 1X ONCE 05/20/19 23:15 05/20/19 23:16 DC 05/20/19 23:36 1,200,000 UNIT Sodium Chloride 1,000 ml @ 1,000 mls/hr 1X ONCE 05/21/19 00:15 05/21/19 01:14 05/21/19 00:11 1,000 MLS/HR Allergies Allergies Allergies Coded Allergies Type Severity Reaction Last Updated Verified No Known Drug Allergies 06/22/13 No Physical Exam Physical Exam Constitutional: Well developed, well nourished, mild distress, non-toxic appearance. [] HENT: Normocephalic, atraumatic, bilateral external ears normal, oropharynx moist, no oral exudates, nose normal. Left ear with erythema[] Eyes: PERRLA, EOMI, conjunctiva normal, no discharge. [] Neck: Normal range of motion, TTP bilaterally, + lymphadenopathy Cardiovascular: Tachycardia Lungs & Thorax: Bilateral breath sounds clear to auscultation [] Abdomen: Bowel sounds normal, soft, no tenderness, no masses, no pulsatile masses. [] Skin: Warm, dry, no erythema, no rash. [] Back: No tenderness, no CVA tenderness. [] Extremities: No tenderness, no edema. [] Neurologic: Alert and oriented X 3, no focal deficits noted. [] Psychologic: Affect normal, judgement normal, mood normal. [] Current Patient Data Vital Signs Vital Signs Date Time Temp Pulse Resp B/P (MAP) Pulse Ox O2 Delivery O2 Flow Rate FiO2 05/21/19 00:10 100.3 100.3 05/20/19 23:55 117 18 135/65 (88) 98 Room Air Lab Values Laboratory Tests Test 05/20/19 22:35 05/20/19 22:48 Influenza Type A Antigen Negative (NEGATIVE) Influenza Type B Antigen Negative (NEGATIVE) White Blood Count 14.4 x10^3/uL (4.0-11.0) H Red Blood Count 5.24 x10^6/uL (3.50-5.40) Hemoglobin 12.4 g/dL (12.0-15.5) Hematocrit 38.7 % (36.0-47.0) Mean Corpuscular Volume 74 fL (79-100) L Mean Corpuscular Hemoglobin 24 pg (25-35) L Mean Corpuscular Hemoglobin Concent 32 g/dL (31-37) Red Cell Distribution Width 16.3 % (11.5-14.5) H Platelet Count 155 x10^3/uL (140-400) Neutrophils (%) (Auto) 89 % (31-73) H Lymphocytes (%) (Auto) 6 % (24-48) L Monocytes (%) (Auto) 4 % (0-9) Eosinophils (%) (Auto) 1 % (0-3) Basophils (%) (Auto) 0 % (0-3) Neutrophils # (Auto) 12.7 x10^3/uL (1.8-7.7) H Lymphocytes # (Auto) 0.9 x10^3/uL (1.0-4.8) L Monocytes # (Auto) 0.6 x10^3/uL (0.0-1.1) Eosinophils # (Auto) 0.1 x10^3/uL (0.0-0.7) Basophils # (Auto) 0.0 x10^3/uL (0.0-0.2) Segmented Neutrophils % 85 % (35-66) H Band Neutrophils % 4 % (0-9) Lymphocytes % 9 % (24-48) L Monocytes % 2 % (0-10) Toxic Granulation Slight Toxic Vacuolation Mod Platelet Estimate Adequate (ADEQUATE) Hypochromasia Slight Microcytosis Mod Sodium Level 136 mmol/L (136-145) Potassium Level 3.8 mmol/L (3.5-5.1) Chloride Level 102 mmol/L (98-107) Carbon Dioxide Level 24 mmol/L (21-32) Anion Gap 10 (6-14) Blood Urea Nitrogen 7 mg/dL (7-20) Creatinine 0.8 mg/dL (0.6-1.0) Estimated GFR (Cockcroft-Gault) 102.6 BUN/Creatinine Ratio 9 (6-20) Glucose Level 111 mg/dL (70-99) H Calcium Level 8.7 mg/dL (8.5-10.1) Total Bilirubin 0.5 mg/dL (0.2-1.0) Aspartate Amino Transferase (AST) 13 U/L (15-37) L Alanine Aminotransferase (ALT) 28 U/L (14-59) Alkaline Phosphatase 66 U/L (46-116) Total Protein 8.3 g/dL (6.4-8.2) H Albumin 3.5 g/dL (3.4-5.0) Albumin/Globulin Ratio 0.7 (1.0-1.7) L Laboratory Tests 05/20/19 22:48 Laboratory Tests 05/20/19 22:48 EKG EKG [] Radiology/Procedures Radiology/Procedures [] Course & Med Decision Making Course & Med Decision Making Pertinent Labs and Imaging studies reviewed. (See chart for details) [28-year-old female presents to the emergency department complaints of sore throat, fever. Temperature 103.1. Patient states she is taken Tylenol [id number] with no significant improvement. Patient describes nausea. She denies any abdominal pain on examination or dysuria. Nothing makes her symptoms better. Patient states she did receive her influenza vaccine. + strep throat IVF x 2 liters Tylenol/Motrin po x 1 Encourage fluids Bicillin LA given in ER for strep throat Dragon Disclaimer Dragon Disclaimer This electronic medical record was generated, in whole or in part, using a voice recognition dictation system. Departure Departure Impression: Primary Impression: Strep throat Disposition: HOME, SELF-CARE Condition: IMPROVED Referrals: TEOFILO DE JESUS MD (PCP) Patient Instructions: Strep Throat Additional Instructions: + strep throat testing in ER Bicillin-LA IM shot - no need for oral antibiotics Zofran as needed for nausea/vomiting Encourage po intake of liquids Tylenol 1000 mg every 6 hours Motrin 800 mg every 8 hours Scripts Ondansetron Hcl (ZOFRAN) 4 Mg Tablet 1 TAB PO PRN Q6-8HRS for nausea, #12 TAB Prov: MAX BRANNON MD 05/21/19 MAX BRANNON MD May 20, 2019 22:38
--- NOTE | 2019-05-20 22:40 | RAD ---
Exam: Chest one view INDICATION: Shortness of breath TECHNIQUE: Frontal view of the chest Comparisons: 01/24/2019 FINDINGS: The cardiomediastinal silhouette and pulmonary vessels are within normal limits. The lung and pleural spaces are clear. IMPRESSION: No acute cardiopulmonary process. Electronically signed by: Quynh Aragon MD (05/20/2019 10:37 PM) [id number]
[2019-05-20] MEDS ORDERED: ACETAMINOPHEN 500 MG TABLET PO ONE (22:45)
[2019-05-20] MEDS ORDERED: IBUPROFEN 400 MG TABLET. PO ONE (22:45)
[2019-05-20 23:03] LABS: BASO % 0 % (0-3); EOS # 0.1 x10^3/uL (0.0-0.7); EOS % 1 % (0-3); HEMATOCRIT 38.7 % (36.0-47.0); HEMOGLOBIN 12.4 g/dL (12.0-15.5); LYMPH # 0.9 x10^3/uL (1.0-4.8); LYMPH % 6 % (24-48); MEAN CORPUSCULAR HEMOGLOBIN 24 pg (25-35); MEAN CORPUSCULAR HGB CONC 32 g/dL (31-37); MEAN CORPUSCULAR VOLUME 74 fL (79-100); MONO # 0.6 x10^3/uL (0.0-1.1); MONO % 4 % (0-9); NEUT # 12.7 x10^3/uL (1.8-7.7); NEUT % 89 % (31-73); PLATELET COUNT 155 x10^3/uL (140-400); RED BLOOD COUNT 5.24 x10^6/uL (3.50-5.40); RED CELL DISTRIBUTION WIDTH 16.3 % (11.5-14.5); WHITE BLOOD COUNT 14.4 x10^3/uL (4.0-11.0)
[2019-05-20 23:10] LABS: CALCIUM 8.7 mg/dL (8.5-10.1); CREATININE 0.8 mg/dL (0.6-1.0); GFR 102.6; POTASSIUM 3.8 mmol/L (3.5-5.1)
[2019-05-20] MEDS ORDERED: PENICILLIN G BENZATHINE LA 1,200,000 UNIT/2 ML DISP.SYRIN. IM ONE (23:15)
[2019-05-20] MEDS ORDERED: IV NORMAL SALINE 1000ML BAG 1,000 ML IV ONE (23:15)
[2019-05-20 23:16] LABS: INFLUENZA A PATIENT NEGATIVE (NEGATIVE); INFLUENZA B PATIENT NEGATIVE (NEGATIVE)
[2019-05-20 23:17] LABS: ALBUMIN 3.5 g/dL (3.4-5.0); ALBUMIN/GLOBULIN RATIO 0.7 (1.0-1.7); TOTAL BILIRUBIN 0.5 mg/dL (0.2-1.0); TOTAL PROTEIN 8.3 g/dL (6.4-8.2)
[2019-05-20 23:19] LABS: % BANDS 4 % (0-9); % LYMPHS 9 % (24-48); % MONOS 2 % (0-10); % SEGS 85 % (35-66)
[2019-05-20 23:21] LABS: HYPOCHROMIA SLIGHT; PLT ESTIMATE ADEQUATE (ADEQUATE)
[2019-05-20 23:22] LABS: MICROCYTOSIS MOD; TOXIC GRANULATION SLIGHT; TOXIC VACUOLATION MOD
[2019-05-21] MEDS ORDERED: IV NORMAL SALINE 1000ML BAG 1,000 ML IV ONE (00:15)
[2019-05-21] MEDS ORDERED: ONDA4TAB7 PO (00:29)
[2019-05-21 00:55] VITALS: BP 129/60
== END 2019-05-21 00:57 | disposition home or self-care (01) ==
LOC: ER 22:11
DX: J02.0 Streptococcal pharyngitis (principal); B95.0 Streptococcus, group A, as the cause of diseases classified elsewhere; I10 Essential (primary) hypertension; F17.200 Nicotine dependence, unspecified, uncomplicated
CPT/HCPCS: 36415; 71045; 80053; 85007; 85025; 87040; 87804; 87880; 96372; 99285; J0561; J7030

== ENCOUNTER 2021-04-21 13:06 | Emergency (ER) | payer OTHER ==
[~2021-04-21] VITALS: Ht 165.1 cm; Wt 133.4 kg
[~2021-04-21 13:06] MED LIST changes: +CYCL10TA19 PO; -CYCL10TA2 PO
--- NOTE | 2021-04-21 13:36 | PHYS DOC ---
Past Medical History Past Medical History: Depression, Hypertension, Other Additional Past Medical Histor: ECTOPIC , ovarian cyst Past Surgical History: Other Additional Past Surgical Histo: tumor removal as a child, TUBAL Smoking Status: Current Some Day Smoker Alcohol Use: Rarely Drug Use: None General Adult EDM: Chief Complaint: SHORTNESS OF BREATH HPI: HPI: Patient is a 30 year old female with history of depression, hypertension and states she does not want to take BP medicine, who presents the ED today complaining of cough, nasal congestion, headache, subjective fevers, vomiting, Symptoms for 3 days. Patient denies any chance she is denies any abdominal pain. Denies any chest pain. She states she received Moderna COVID vaccine 2 doses last dose in July 2020. Review of Systems: Review of Systems: Constitutional: Reports subjective fevers Eyes: Denies change in visual acuity. [] HENT: Reports nasal congestion Respiratory: Reports cough, shortness of breath. [] Cardiovascular: Denies chest pain or edema. [] GI: Reports vomiting. Denies abdominal pain, nausea, vomiting, bloody stools or diarrhea. [] : Denies dysuria. [] Musculoskeletal: Denies back pain or joint pain. [] Integument: Denies rash. [] Neurologic: Denies headache, focal weakness or sensory changes. [] Psychiatric: Denies depression or anxiety. [] Heart Score: C/O Chest Pain: N/A Risk Factors: Risk Factors: DM, Current or recent (<one month) smoker, HTN, HLP, family history of CAD, obesity. Risk Scores: Score 0 - 3: 2.5% MACE over next 6 weeks - Discharge Home Score 4 - 6: 20.3% MACE over next 6 weeks - Admit for Clinical Observation Score 7 - 10: 72.7% MACE over next 6 weeks - Early Invasive Strategies Current Medications: Current Medications Medications (Trade) Dose Ordered Sig/Kelly Start Time Stop Time Status Last Admin Dose Admin Acetaminophen (Tylenol) 1,000 mg 1X ONCE 04/21/21 13:45 04/21/21 13:46 UNV Ondansetron HCl (Zofran Odt) 4 mg 1X ONCE 04/21/21 13:45 04/21/21 13:46 UNV Allergies: Allergies: Allergies Coded Allergies Type Severity Reaction Last Updated Verified No Known Drug Allergies 06/22/13 No Physical Exam: PE: Constitutional: Well developed, well nourished, no acute distress, non-toxic appearance. [] HENT: Normocephalic, atraumatic, bilateral external ears normal, oropharynx moist, no oral exudates, patient is congested nasally Eyes: PERRLA, EOMI, conjunctiva normal, no discharge. [] Neck: Normal range of motion, no tenderness, supple, no stridor. [] Cardiovascular:Heart rate regular rhythm, no murmur [] Lungs & Thorax: Bilateral breath sounds clear to auscultation [] Abdomen: Bowel sounds normal, soft, no tenderness, no masses, no pulsatile masses. [] Skin: Warm, dry, no erythema, no rash. [] Back: No tenderness, no CVA tenderness. [] Extremities: No tenderness, no cyanosis, no clubbing, ROM intact, no edema. [] Neurologic: Alert and oriented X 3, normal motor function, normal sensory function, no focal deficits noted. [] Psychologic: Affect normal, judgement normal, mood normal. [] Current Patient Data: Vital Signs: Vital Signs Date Time Temp Pulse Resp B/P (MAP) Pulse Ox O2 Delivery O2 Flow Rate FiO2 04/21/21 13:10 98.5 108 24 168/98 (121) 99 Room Air 98.5 EKG: EKG: [] Radiology/Procedures: Radiology/Procedures: []PROCEDURE: CHEST AP ONLY EXAM: Chest, single view. HISTORY: Shortness of air. COMPARISON: 05/20/2019 FINDINGS: A frontal view of the chest is obtained. There is no infiltrate, pleural effusion or pneumothorax. The heart is normal in size. IMPRESSION: No acute pulmonary finding. Electronically signed by: Tanisha Wong MD (04/21/2021 1:47 PM) [facility] DICTATED and SIGNED BY: TANISHA WONG MD DATE: 04/21/21 [id number] 0 Course & Med Decision Making: Course & Med Decision Making Pertinent Labs and Imaging studies reviewed. (See chart for details) This is a 30-year-old female patient presenting to the ED today complaining of cough, nasal congestion, headache, subjective fevers, vomiting, symptoms for 3 days. Arrives in the ED with a temperature of 98.1, heart rate was 108, resp 24 though the patient was very nervous on arrival. Blood pressure 168/98-history of hypertension and states she does not want to take blood pressure medicine. O2 sats 99-100% on room air. HR came down to 89 O2 sat stayed to 100% on room air, blood pressure was 153/100, Chest x-ray is negative for any acute findings, negative influenza A&B. Refused to give us any urine. Pending Covid PCR test. Discharge to home. OTC medications recommended, supportive care measures recommended. Follow-up with PCP in 1 to 2 weeks Corry Disclaimer: Corry Disclaimer: This electronic medical record was generated, in whole or in part, using a voice recognition dictation system. Departure Departure Impression: Primary Impression: Cough Additional Impressions: URI (upper respiratory infection) Qualified Codes: J06.9 - Acute upper respiratory infection, unspecified Fever Qualified Codes: R50.9 - Fever, unspecified Nausea & vomiting Qualified Codes: R11.2 - Nausea with vomiting, unspecified Person under investigation for COVID-19 Disposition: 01 HOME / SELF CARE / HOMELESS Condition: STABLE Referrals: TEOFILO DE JESUS MD (PCP) follow up in one week Patient Instructions: Cough, Adult, [id number], Nausea and Vomiting, [id number], Upper Respiratory Infection, Adult, [id number] Additional Instructions: You were evaluated in the emergency room with symptoms suspicious of a viral illness. You have a pending COVID PCR test. We will call you when results are back, in the meantime rest, push fluids, maintain good and hygiene and follow-up with your doctor in 1 week. Please try to establish care with a primary care doctor and follow-up for your high blood pressure Scripts Ondansetron (ONDANSETRON ODT) 4 Mg Tab.rapdis 1 TAB PO PRN Q6-8HRS, #16 TAB Prov: SAPPHIRE MARSHALL APRN 04/21/21 SAPPHIRE MARSHALL APRN Apr 21, 2021 13:36
[2021-04-21] MEDS ORDERED: ONDANSETRON ODT 4 MG TAB.RAPDIS. PO ONE (13:45)
[2021-04-21] MEDS ORDERED: ACETAMINOPHEN 500 MG TABLET PO ONE (13:45)
--- NOTE | 2021-04-21 13:49 | RAD ---
EXAM: Chest, single view. HISTORY: Shortness of air. COMPARISON: 05/20/2019 FINDINGS: A frontal view of the chest is obtained. There is no infiltrate, pleural effusion or pneumo thorax. The heart is normal in size. IMPRESSION: No acute pulmonary finding. Electronically signed by: Tanisha Wong MD (04/21/2021 1:47 PM) [facility]
[2021-04-21 13:59] LABS: INFLUENZA A PATIENT NEGATIVE (NEGATIVE); INFLUENZA B PATIENT NEGATIVE (NEGATIVE)
[2021-04-21] MEDS ORDERED: ONDA4TAB12 PO (14:27)
[2021-04-21 14:54] VITALS: BP 153/95
--- NOTE | 2021-04-22 10:12 | NUR ---
IP: Informed pt of negative covid test. Pt verbalized understanding.
== END 2021-04-21 14:52 | disposition home or self-care (01) ==
LOC: ER 13:06
DX: J06.9 Acute upper respiratory infection, unspecified (principal); Z20.822 Contact with and (suspected) exposure to COVID-19; R11.2 Nausea with vomiting, unspecified; R50.9 Fever, unspecified; I10 Essential (primary) hypertension; F17.200 Nicotine dependence, unspecified, uncomplicated
CPT/HCPCS: 71045; 87428; 99284; C9803; U0003